=== PATIENT | female | born 1985 | race Caucasian/White ===

== ENCOUNTER 2024-07-06 23:57 | Inpatient (IN) | payer OTHER, SELFPAY ==
--- NOTE | ~2024-07-06 | CT_ITS ---
EXAMINATION: CT ABDOMEN AND PELVIS WITH CONTRAST CLINICAL INFORMATION: Diffuse abdominal pain. Elevated LFTs. COMPARISON: None available. TECHNIQUE: Multidetector volumetric images were obtained from the superior aspect of the liver through the pubic symphysis following administration 85 mL of Omnipaque 350 intravenous contrast. Sagittal and coronal reformatted images were obtained on the technologist's workstation. Oral contrast: No This CT examination was performed using dose optimization techniques as appropriate, variously including the following: *Automated exposure control *Adjustment of mA and/or kV according to patient size (this includes techniques or standardized protocols for targeted exams where dose is matched to indication/reason for exam; i.e. extremities or head) *Use of iterative reconstruction technique DLP: 477 mGy-cm FINDINGS: LUNG BASES: Patchy pulmonary groundglass LIVER, GALLBLADDER, AND BILIARY TREE: Liver measures 30 cm. Diffuse heterogeneous nodular enhanced throughout the liver parenchyma. Main portal vein and hepatic veins and intrahepatic portion of the IVC are patent with No intrahepatic biliary ductal dilatation. Fluid-filled gallbladder with trace of pericholecystic fluid. Common bile duct measures 3 mm. PANCREAS: Peripancreatic edema pattern/trace of fluid, lesser sac or focal pancreatic mass. Homogeneous enhancement of the pancreatic parenchyma. No main pancreatic ductal dilatation. SPLEEN: 14 cm. No focal mass. ADRENAL GLANDS: No nodular lesions. KIDNEYS AND URETERS: No renal mass. No hydronephrosis. Normal enhancement pattern of the renal parenchyma. BLADDER: Fluid-filled. GASTROINTESTINAL TRACT: Collapsed appearance of the large intestine. No intestinal obstruction pattern. Small volume of ascites. No pneumoperitoneum. No pneumatosis intestinalis. There appears to be a blind ended in the tubular structure likely normal appendix. ABDOMINAL WALL: Small fat-containing umbilical hernia with trace of fluid. LYMPH NODES: Prominent nonspecific lymph nodes, mesenteric and retroperitoneal. VASCULAR: I do not see a prominent umbilical vein. No gross splenorenal shunting. No gross varices at the gastroesophageal junction. No aneurysm or dissection, abdominal aorta. PELVIC VISCERA: No gross masses in the adnexa or the uterus. OSSEOUS STRUCTURES: No lytic or blastic lesions. No acute fracture or listhesis in the axial skeleton. CT/CT abdomen pelvis w IV con IMPRESSION: Hepatosplenomegaly suggesting cirrhosis. Superimposed hepatocellular dysfunction/acute hepatitis versus tumor infiltration to the liver cannot be excluded. Small amount of ascites. Questionable acute pancreatitis. No intestinal obstruction pattern. No pneumoperitoneum. Fleischner guidelines were followed. Electronically signed by: Castillo Abraham MD 07/07/2024 10:28 AM [facility]
--- NOTE | ~2024-07-06 | XR_ITS ---
EXAMINATION: XR CHEST 2 VIEW CLINICAL INFORMATION: Elevated WBC, rule out pneumonia COMPARISON: None TECHNIQUE: PA and lateral views of the chest obtained. FINDINGS: The lungs are clear. There are no pleural effusions. The cardiomediastinal silhouette is normal. XR/XR chest 2V IMPRESSION: No acute cardiopulmonary disease. Electronically signed by: Mathieu Paula MD 07/07/2024 02:34 PM EST
--- NOTE | ~2024-07-06 | US_ITS ---
EXAMINATION: US ABDOMEN LIMITED CLINICAL INFORMATION: Ascites. COMPARISON: None available. TECHNIQUE: Four-quadrant examination of the abdomen and pelvis is performed for assessment for ascites. FINDINGS/ US/US abdomen limited IMPRESSION: There is hepatomegaly, with a longitudinal span of 22.4 cm. There is mild free fluid within the left upper quadrant. Electronically signed by: Austin Costa MD 07/11/2024 05:26 PM EST
--- NOTE | ~2024-07-06 | US_ITS ---
EXAMINATION: US ABDOMEN LIMITED CLINICAL INFORMATION: Diffuse abdominal pain, elevated LFTs.. COMPARISON: None available. TECHNIQUE: Real-time imaging of the right upper quadrant abdominal viscera. FINDINGS: PANCREAS: Mildly enlarged, mildly hypoechoic without focal lesion. LIVER: Enlarged, measuring 26.0 cm. Is diffusely echogenic consistent with diffuse fatty infiltration. Mild macro nodularity to the liver contour suggests some degree of cirrhosis. No suspicious focal lesion. There is no intrahepatic or extrahepatic biliary duct dilatation seen. GALLBLADDER: There are no calculi. There is mild diffuse wall thickening with a tiny focus of pericholecystic fluid present. Assessment for sonographic Arriaga sign is limited, as the patient is tender everywhere over the abdomen. Gallbladder wall measures up to 3 mm in thickness. There is mild gallbladder distention. There is no sludge, or mass present. COMMON BILE DUCT: Normal in caliber measuring 2.2 cm in diameter. RIGHT KIDNEY: Normal. No hydronephrosis. No renal calculi or focal parenchymal lesions. The kidney measures 11.7 cm in maximum dimension. FREE FLUID: Aside from trace pericholecystic fluid, no additional abnormal fluid present. US/US abdomen limited IMPRESSION: 1. Diffuse enlargement and fatty infiltration of the liver with possible early cirrhotic changes. No discrete focal lesion. 2. Mild enlargement of the head of the pancreas with mild decrease in attenuation, findings which could represent acute pancreatitis in the appropriate clinical setting. No focal pancreatic abnormality. 3. Mild gallbladder wall thickening with a trace amount of pericholecystic fluid, nonspecific. Limited assessment for sonographic Arriaga's due to diffuse pain. No definite calculi or sludge seen. 4. Consider cross-sectional CT imaging of the abdomen/pelvis to further elucidate findings. Electronically signed by: Garcia Reyna MD 07/07/2024 09:44 AM [facility]
[2024-07-06 23:59] VITALS: BP 133/74; PULSE 113; RESP 18; TEMP 36.6; O2SAT 97; BMI 25.2
[2024-07-07] VITALS (8 sets, daily range): BP systolic 113–132; BP diastolic 67–77; PULSE 102–116; RESP 18–33; TEMP 36.8–37.4; O2SAT 96–99
[2024-07-07 00:41] LABS: Basophils Absolute Auto 0.1 X10*3/uL (0.0-0.2); Basophils Percent Auto 0.6 % (0-2); Eosinophils Absolute Auto 0.3 X10*3/uL (0.0-0.4); Eosinophils Percent Auto 1.4 % (0-4); Hematocrit 29.4 % (37.0-47.0); Hemoglobin 10.2 g/dl (12.0-16.0); Imm Gran Abs Auto 0.46 X10*3/uL (0.00-0.03); Lymphocytes Absolute Auto 2.6 X10*3/uL (1.2-4.9); Lymphocytes Percent Auto 11.2 % (20-40); MANUAL DIFF FLAG SCAN; Mean Corpuscular HGB Conc 34.7 g/dl (31.0-35.0); Mean Corpuscular Hemoglobin 34.6 pg (27.0-33.0); Mean Corpuscular Volume 99.7 fL (80.0-98.0); Mean Platelet Volume 9.4 fL (9.4-12.3); Monocytes Absolute Auto 1.9 X10*3/uL (0.1-1.2); Monocytes Percent Auto 8.4 % (2-11); Neutrophils Absolute Auto 17.5 x10*3/uL (2.0-8.3); Neutrophils Percent Auto 76.4 % (45-73); Platelet Count 251 X10*3/uL (160-400); Red Blood Count 2.95 X10*6/uL (4.20-5.50); Red Cell Distribution Width 15.9 % (11.0-16.0); SCAN SMEAR FLAG 1; White Blood Count 22.9 X10*3/uL (4.8-10.8)
[2024-07-07 00:57] LABS: Alanine Aminotransferase 47 U/L (0-31); Albumin Level 2.8 g/dL (3.5-5.0); Alkaline Phosphatase 637 U/L (39-117); Anion Gap 17 (12-20); Aspartate Amino Transferase 205 U/L (5-31); Bilirubin Direct 7.5 mg/dL (0.0-0.5); Bilirubin Total 9.5 mg/dL (0.0-1.0); Blood Urea Nitrogen 5 mg/dL (9-16); Calcium 8.4 mg/dL (8.4-10.2); Carbon Dioxide 25 mmol/L (22-29); Chloride 101 mmol/L (96-108); Creatinine Clr Calc Pharmacy 124.1; Estimated Glomerular Filt Rate > 60; Glucose Random 114 mg/dL (60-115); Lipase 19 U/L (8-78); Potassium 3.2 mmol/L (3.3-5.1); Sodium 140 mmol/L (135-145); Total Protein 6.5 g/dL (6.5-8.0)
[2024-07-07 01:03] LABS: SLIDE REVIEW VERIFIED
--- NOTE | 2024-07-07 02:42 | PC.NURSE ---
pt a&ox4, respirations even and unlabored. pt noted to be sinus tachy 111-112. pt reports getting lab work from pcp last week and noted abnormal results. pt noted to have jaundice skin and sclera. pt reports n/v/d x2 weeks with abdominal pain. pt noted to have bowel sounds x4 quadrants. abdomen is distended and painful upon palpation. pt reports chronic alcohol use, last drink 1 week ago. pt family member at bedside states pt often 'slips drinks behind his back'. 20g placed in r ac.
--- NOTE | 2024-07-07 04:51 | PC.NURSE ---
provider aware of pt tachycardia, no new orders at this time.
--- NOTE | 2024-07-07 06:23 | ED.GENADULT ---
HPI - General Adult General Chief complaint: Recheck/Abnormal Lab/Rx Stated complaint: abnormal labs Time Seen by Provider: 07/07/24 06:22 Source: patient and RN notes reviewed Mode of arrival: ambulatory Limitations: no limitations History of Present Illness ED Provider: Emily Zimmer PA-C HPI narrative: This is a 39-year-old female, with a history of alcohol use disorder, who presents emergency department with complaints of generalized body aches, abdominal bloating, abdominal pain, diarrhea, nausea and vomiting. Patient reports that she has not been feeling well over the last month or 2, she is very vague with the onset of her symptoms. She states that around April time, she developed abdominal bloating, as well as abdominal discomfort and occasional nausea and vomiting. She went to her primary care physician last week where she had outpatient blood work as well as had an ultrasound performed however has not heard back about the ultrasound or the blood work. She states that her partner had researched her blood work on her patient portal and was concerned due to these abnormal levels. During first encounter, patient reports that she only drinks 1-2 glasses of wine several times a week. However, upon further questioning later on during her ED stay, she does admit that she has been drinking 3 glasses of wine per day. She states that she has had times where she would stopped drinking however admits that this has been occurring for the last 8-10 years. Denies history of alcohol withdrawal seizures or alcohol withdrawal. She reports significant family past medical history of alcohol use disorder, reporting that multiple members of her family have from alcohol use disorder. She also reports that last year she had been admitted to a hospital in [place] due to lower extremity weakness, and was told that this was attributed to on electrolyte/vitamin deficiency. She states that she still has peripheral neuropathy however this has significantly improved since her previous hospital stay last year. She denies any recent travel, surgery, or hospitalizations. She is extremely anxious, tearful. MD complaint: Abdominal distention, pain, nausea, vomiting Onset (ago): week(s) Radiation: non-radiation Quality: aching Pain Consistency: constant Relieving factors: none Exacerbating factors: none Associated symptoms: loss of appetite, malaise and nausea/vomiting Treatments prior to arrival: none Related Data Home Medications ?Medication ?Instructions ?Recorded ?Confirmed folic acid 1 mg tablet 1 mg PO DAILY 07/07/24 07/07/24 hydroxyzine HCl 25 mg tablet 25 mg PO QID PRN itch 07/07/24 07/07/24 levothyroxine 25 mcg tablet 25 mcg PO DAILY@0630 07/07/24 07/07/24 magnesium oxide 400 mg PO DAILY 07/07/24 07/07/24 norgestimate 0.18 mg/0.215 mg/0.25 1 tab PO DAILY 07/07/24 07/07/24 mg-ethinyl estradiol 25 mcg tablet ([id number]) sertraline 50 mg tablet 150 mg PO DAILY 07/07/24 07/07/24 Allergies Allergy/AdvReac Type Severity Reaction Status Date / Time No Known Allergies Allergy Verified 07/07/24 00:04 Review of Systems Review of Systems: Yes all other systems are reviewed and are negative Constitutional: Constitutional: Reports as per [facility] Past Medical History Attestation statement: The following information was validated with the patient. Medical History Anxiety disorder Hypothyroidism Alcohol use disorder Social History Social History Alcohol intake: current Alcohol intake frequency: a few times a week Patient Tobacco Use Status: Never used Tobacco Smoked in Last 30 Days: No Use of substances other than those prescribed or required for medical reasons: No Advance Directives: Yes Advance Directives Information Provided: Yes Advance Directives on File: No Do you have a plan to hurt others: No Plan Nutrition Risks: No Nutritional Risk Patient : No Physical Exam ED Vital Signs: Vital Signs - 24 hr 07/06/24 23:59 07/07/24 01:49 07/07/24 04:34 Temperature 97.8 F 99.4 F 98.6 F Pulse Rate 113 H 107 H 105 H Respiratory Rate 18 18 20 Blood Pressure 133/74 115/67 113/67 Pulse Oximetry 97 97 96 Oxygen Delivery Method Room Air Room Air Room Air 07/07/24 07:15 07/07/24 10:00 Temperature 98.2 F 98.5 F Pulse Rate 107 H 105 H Respiratory Rate 23 H 33 H Blood Pressure 120/72 116/69 Pulse Oximetry 98 96 Oxygen Delivery Method Room Air Room Air BMI result Body Mass Index 25.2 Const General: cooperative, comfortable and no acute distress Orientation/consciousness: patient oriented x3 Limitations: no limitations [facility] Head: Yes normal to inspection, Yes normocephalic and Yes atraumatic Ears: hearing grossly normal bilaterally General nose exam: Normal external nose present Face and sinus: Yes normal facial exam Mouth: Normal oral and palatal mucosa present, oropharynx normal and moist mucous membranes Throat: Yes posterior oropharynx normal Eyes Other: Scleral icterus noted. General: appearance normal, both eyes and all related structures Eyelids: Yes eyelids normal Pupils: Equal, round and reactive pupils present EOM: EOMs intact bilaterally Neck Neck: Yes normal visual inspection, Yes full ROM and Yes no lymphadenopathy Lymphatic: no lymphadenopathy noted Chest Chest palpation & inspection: normal inspection of the chest Resp Effort & Inspection: normal respiratory effort and able to speak in complete sentences Auscultation: clear to auscultation bilaterally, no crackles, no rales, no rhonchi and no wheezes Cardio Rate: regular rate Rhythm: regular rhythm Heart sounds: S1 normal heart sound present and S2 normal heart sound present GI Other: Abdomen is firm and diffusely tender, no rebound. Distended. No specific point tenderness.no rebound or guarding. Positive bowel sounds. Inspection: Yes normal to inspection, Yes Abdominal wall edema and Yes distended Auscultation: normal bowel sounds Skin Other: Jaundiced General skin exam: no rashes or lesions noted and jaundice Neuro General: patient oriented x3 and moves all extremities Cranial nerves: Yes Equal, round and reactive pupils present Extrem General: Yes normal to inspection Right upper extremity: normal to inspection Left upper extremity: normal to inspection Right lower extremity: normal to inspection Left lower extremity: normal to inspection Course Reevaluation(s) Reevaluation #1: Ultrasound was performed at bedside, awaiting official radiology report. CT scan has not been performed yet. Patient remained stable and comfortable. Will continue to closely monitor. Time: 08:59 Reevaluation #2: Patient went to CT scan, very anxious appearing, upon more questioning, patient does admit that she does drink 3 glasses of wine per day. She states that she has periods of sobriety. However states that she has been drinking like this for several months. She is very anxious, CIWA scale was performed, is elevated, will medicate with phenobarb protocol. Awaiting CT scan results. Time: 09:47 Reevaluation #3: Received call from [facility], abnormal abdomen and pelvis revealing question of acute hepatitis versus tumor versus cirrhosis. There is also a question of acute pancreatitis however patient's lipase is within normal limits, therefore this is less likely. Will await official report Time: 10:16 Additional Reevaluation(s): CT scan returns, revealing hepatosplenomegaly suggesting cirrhosis, there was some superimposed hepatocellular dysfunction/acute hepatitis versus tumor infiltration to the liver which can not be excluded. There is a small amount of ascites. There is questionable acute pancreatitis. Given patient's lipase is within normal limits, this is unlikely. Due to question of tumor infiltration, this may be the source of the leukocytosis. Patient remains to be extremely anxious, tachycardic. At this time there is no known source of infection. We are awaiting on a urine sample. I reached out to Dr. Kennedy regarding CT scan and blood work. She will follow-up with patient this afternoon. 07/07/1311 - at this time, infection is not suspected, tachycardia attributed to anxiety, as well as alcohol use disorder, however she has received her phenobarbital. however she remains tachycardic. She is afebrile. Leukocytosis noted at 22.9, thought to be reactive, and may be attributed to possible liver disease. Chest x-ray was ordered, urine is still pending. Will administer 1 g of ceftriaxone, however there was still no source of infection at this time. Transfer of care initiated to the hospitalist. Medications Administered Generic Name Dose Route Start Last Admin Trade Name Freq PRN Reason Stop Dose Admin Enoxaparin Sodium 40 mg 07/07/24 13:30 07/07/24 14:53 Enoxaparin Sodium 40 Mg/0.4 Ml Syringe SUBCUT 40 mg Q24H BRANDI Administration Multivitamins/Vitamin C 1 tab 07/07/24 14:50 07/07/24 16:49 Multivitamin Tablet PO 07/10/24 14:49 Not Given DAILY BRANDI Sertraline HCl 150 mg 07/07/24 14:55 07/07/24 16:48 Sertraline Hcl 50 Mg Tablet PO 150 mg DAILY BRANDI Administration Thiamine HCl 100 mg 07/07/24 14:50 07/07/24 16:48 Thiamine Hcl 100 Mg Tablet PO 07/10/24 14:49 100 mg DAILY BRANDI Administration Discontinued Medications Generic Name Dose Route Start Last Admin Trade Name Freq PRN Reason Stop Dose Admin Ceftriaxone Sodium 1 gm 07/07/24 13:13 07/07/24 14:55 Ceftriaxone Sodium 1 Gm Vial IVPUSH 07/07/24 13:14 1 gm ONCE ONE Administration Sodium Chloride 1,000 mls @ 999 mls/hr 07/07/24 11:30 07/07/24 15:07 Ns IV 07/07/24 12:30 Infused .Q1H1M ONE Infusion Iohexol 100 ml 07/07/24 09:20 07/07/24 09:20 Iohexol 350 Mg/Ml 100 Ml Infus..Btl IV 07/07/24 09:21 85 ml ONCE ONE Administration Phenobarbital Sodium 219 mg 07/07/24 10:15 07/07/24 10:42 Phenobarbital Sodium 130 Mg/Ml Im Once IM 07/07/24 10:16 219 mg ONCE ONE Administration Protocol Phenobarbital Sodium 164 mg 07/07/24 13:00 07/07/24 14:54 Phenobarbital Sodium 130 Mg/Ml Vial Im Q3hx2 IM 07/07/24 16:01 164 mg Q3H BRANDI Administration Protocol Potassium Chloride 20 meq 07/07/24 14:21 07/07/24 14:52 Potassium Chloride Er 20 Meq Tab.Er.Prt PO 07/07/24 14:22 20 meq ONCE ONE Administration Medical Decision Making Medical Decision Making [facility] Narrative: This is a 39-year-old female who presents emergency department with complaints of generalized body aches, diffuse abdominal pain since April, diarrhea which started today. She was seen at an outpatient facility where she had outpatient labs drawn however has not heard back in regards to these results. She states that the bloating has increased over the last 2 weeks. On arrival, patient tachycardic at 111 all other vital signs within normal limits. During my assessment at approximately 7:15 a.m, blood pressure within normal limits, she is slightly tachycardic at 107, respirations 23. Patient is tearful, very anxious, shaking throughout my entire assessment. She states that she has a very anxious person and the thought of her being here is very difficult for her. She states that she is very ashamed of her alcohol use. Labs were performed prior to my assessment, she does have leukocytosis at 22.9 with a left shift. Abdomen is distended, she does have an elevated total bilirubin at 9.5, direct bili at 7.5, AST 205, ALT 47, and elevated alk phos at 637. Differential diagnoses include alcohol-induced hepatitis, cholescysititis - less likely, cholangitis - less likely, cirrhosis. At this time, I do not suspect infection as there is no source of infection and I believe that this is likely reactive secondary to alcohol abuse. Plan: Labs, abdomen US, CT abd/pelvis Differential Diagnosis Differential Diagnoses: The differential diagnosis associated with the presentation includes See above Lab Data MDM Lab Attestation statement: I reviewed the patient's lab results. Leukocytosis noted at 22.9 K, with left shift, chemistry revealing hypokalemia at 3.2, total bili elevated at 9.5, direct bili 7.5, AST and ALT 205 and 47. Alk phos elevated at 637. Suspecting this is alcoholic hepatitis. 07/07/24 00:33 07/07/24 00:33 Labs: Lab Results 07/07/24 07/07/24 07/07/24 Range/Units 00:33 07:12 12:17 WBC 22.9 H (4.8-10.8) X10*3/uL RBC 2.95 L (4.20-5.50) X10*6/uL Hgb 10.2 L (12.0-16.0) g/dl Hct 29.4 L (37.0-47.0) % MCV 99.7 H (80.0-98.0) fL MCH 34.6 H (27.0-33.0) pg MCHC 34.7 (31.0-35.0) g/dl RDW 15.9 (11.0-16.0) % Plt Count 251 (160-400) X10*3/uL MPV 9.4 (9.4-12.3) fL Immature Gran % (Auto) 2.0 H (0.0-0.4) % Neut % (Auto) 76.4 H (45-73) % Lymph % (Auto) 11.2 L (20-40) % [place] % (Auto) 8.4 (2-11) % Eos % (Auto) 1.4 (0-4) % Baso % (Auto) 0.6 (0-2) % Lymph # (Auto) 2.6 (1.2-4.9) X10*3/uL [place] # (Auto) 1.9 H (0.1-1.2) X10*3/uL Eos # (Auto) 0.3 (0.0-0.4) X10*3/uL Baso # (Auto) 0.1 (0.0-0.2) X10*3/uL Abs Immat Gran (auto) 0.46 H (0.00-0.03) X10*3/uL Absolute Neuts (auto) 17.5 H (2.0-8.3) x10*3/uL Absolute Nucleated RBC 0.000 (0.0-0.012) X10*3/uL Nucleated RBC % (auto) 0.0 (0.0-0.2) /100WBC Smear Tech's Comments VERIFIED Sodium 140 (135-145) mmol/L Potassium 3.2 L (3.3-5.1) mmol/L Chloride 101 (96-108) mmol/L Carbon Dioxide 25 (22-29) mmol/L Anion Gap 17 (12-20) BUN 5 L (9-16) mg/dL Creatinine 0.56 (0.5-1.4) mg/dL Estim Creat Clear Calc 124.1 Estimated GFR > 60 Random Glucose 114 (60-115) mg/dL Lactic Acid 1.2 (0.5-2.0) mmol/L Calcium 8.4 (8.4-10.2) mg/dL Magnesium 1.8 (1.6-2.6) mg/dL Total Bilirubin 9.5 H (0.0-1.0) mg/dL Direct Bilirubin 7.5 H (0.0-0.5) mg/dL AST 205 H (5-31) U/L ALT 47 H (0-31) U/L Alkaline Phosphatase 637 H (39-117) U/L Ammonia 57 H (13-55) umol/L Total Protein 6.5 (6.5-8.0) g/dL Albumin 2.8 L (3.5-5.0) g/dL Lipase 19 (8-78) U/L TSH 10.01 H (0.32-4.0) uIU/mL Beta HCG, Quant < 2 mIU/mL Hepatitis A IgM Ab Nonreactive (Nonreactive) Hep Bs Antigen Negative (Negative) Hep Bs Antibody NONREACTIVE (Nonreactive) Hep B Core Total Ab Nonreactive (Nonreactive) Hepatitis C Ab (EIA) Nonreactive (Nonreactive) Radiology Impression Discussion of test interpretation with radiology: I have reviewed the radiologist's reading. Radiologist Impression: XR/XR chest 2V IMPRESSION: No acute cardiopulmonary disease. Electronically signed by: Mathieu Paula MD 07/07/2024 02:34 PM EST RP Dictated By: Mathieu Paula MD US/US abdomen limited IMPRESSION: 1. Diffuse enlargement and fatty infiltration of the liver with possible early cirrhotic changes. No discrete focal lesion. 2. Mild enlargement of the head of the pancreas with mild decrease in attenuation, findings which could represent acute pancreatitis in the appropriate clinical setting. No focal pancreatic abnormality. 3. Mild gallbladder wall thickening with a trace amount of pericholecystic fluid, nonspecific. Limited assessment for sonographic Arriaga's due to diffuse pain. No definite calculi or sludge seen. 4. Consider cross-sectional CT imaging of the abdomen/pelvis to further elucidate findings. Electronically signed by: Garcia Reyna MD 07/07/2024 09:44 AM [facility] RP Dictated By: Garcia Reyna MD CT/CT abdomen pelvis w IV con IMPRESSION: Hepatosplenomegaly suggesting cirrhosis. Superimposed hepatocellular dysfunction/acute hepatitis versus tumor infiltration to the liver cannot be excluded. Small amount of ascites. Questionable acute pancreatitis. No intestinal obstruction pattern. No pneumoperitoneum. Fleischner guidelines were followed. Electronically signed by: Castillo Abraham MD 07/07/2024 10:28 AM [facility] Dictated By: Castillo Orozco MD External Record Review External record reviewed: Inpatient record, Office record, Outpatient record, Prior outpatient labs, Prior outpatient radiology, Primary care record and Outside ED record Critical Care Time Critical Care Time Critical Care Time: Yes Total Critical Care Time: 60 Attestation: I have personally provided critical care time exclusive of time spent on separately billable procedures. Time includes review of lab data, radiology results, discussion with consultants, and monitoring for potential decompensation. Intervention performed as documented. Discharge Plan Discharge Clinical Impression: Acute alcoholic hepatitis Patient Disposition: Admitted As Inpatient
[2024-07-07 07:30] LABS: Lactic Acid 1.2 mmol/L (0.5-2.0)
[2024-07-07] MEDS: iohexoL 350 MG/ML 100 ML INFUS..BTL IV (09:20)
[2024-07-07 09:56] LABS: HCG Quantitative < 2 mIU/mL
[2024-07-07] MEDS: PHENobarbitaL sodium 130 MG/ML IM ONCE 219 MG IM (10:42)
[2024-07-07] MEDS: 0.9 % Sodium Chloride 1,000 ML 999 ML IV (12:12)
[2024-07-07 12:37] LABS: Ammonia 57 umol/L (13-55)
--- NOTE | 2024-07-07 12:38 | PHA.MEDREC ---
Addendum entered by Gwyn Brandt [facility] 07/07/24 12:44: MED REC CHECKED BY [facility] Original Note: Pharmacy Consult ? Medication Reconciliation Pharmacy has completed the medication reconciliation. Spoke to patent to confirm med list. Patient had a list of medications on her phone. Patent states she is on Levothyroxine 50 mcg , however claim has her filling 25mg. left what claim states.
[2024-07-07 13:06] LABS: HBc Num1 0.25 S/CO (0.00-0.79); HBsAGNum1 0.32 S/CO (0.00-0.99); Hepatitis A Antibody IgM 0.14 Index (0-0.79); Hepatitis B Core Antibody Nonreactive (Nonreactive); Hepatitis B Surface Antigen Negative (Negative); ~HepC Num1 0.11 S/CO (0.00-0.79); ~Hepatitis A Antibody IgM Nonreactive (Nonreactive); ~Hepatitis B Surface Antibody NONREACTIVE (Nonreactive); ~Hepatitis C Antibody Nonreactive (Nonreactive)
--- NOTE | 2024-07-07 13:37 | PM.IMHP ---
History of Present Illness Date of Service: 07/07/24 Attending physician on admission: Titus Hays Chief Complaint: Abdnormal labs, abd distension Pt is a 39-year-old female with a PMH significant for alcohol use disorder, hypothyroidism, and anxiety?who presents to the ED due to abnormal outpatient labs. Pt reports has been feeling unwell for the past 2 months. Began noticing abdominal distension in April and since then has had bloating, generalized abdominal discomfort, and occasional N/V. Dolores has gained 20lbs during this time. Presented to her PCP last week who ordered an abd ultrasound performed at [facility] in [place], [place] and bloodwork. State she never heard back about results. However, her partner noticed labs looked abnormal so called the PCP office and was told she should present to the ED for further evaluation. Pt reports has been drinking 3 glasses of white wine daily x9-10 years. Has significant family history of paternal AUD, saying her father, grandfather, and an aunt from alcoholism . Denies hx of withdrawal. No auditory or visual hallucinations. No headache. Denies fever, chills. No cough. Denies shortness or breath or difficulty breathing. No chest pain/pressure, palpitations. Denies polyuria or dysuria. Denies significant diarrhea. In the ED pt was afebrile but tachycardic up to 113 and tachypneic up to 33. Labs were significant for leukocytosis of 22.9, macrocytic anemia 10.2/29.4 with MCV 99.7, potassium 3.2, bilirubin 9.5, AST 205, ALT 47, alk-phos 637, ammonia 57, and albumin 2.8. Hepatitis panel negative. CT?of abdomen and pelvis showed hepatosplenomegaly suggesting cirrhosis, though superimposed hepatocellular dysfunction/acute hepatitis versus tumor infiltration to the liver can not be excluded. Also found small amount of ascites, and question of acute pancreatitis. Abdominal ultrasound found diffuse enlargement and fatty infiltration of liver possible early cirrhotic changes but no discrete focal lesion. Also found mild enlargement of head of pancreas with mild decrease in attenuation, question of acute pancreatitis. Pt was treated with IVF and started on phenobarb protocol. Pt will be admitted to the hospital for treatment further evaluation of abdominal distention and elevated LFTs concerning for acute alcoholic hepatitis. Review of Systems Review of Systems: Negative except for that which is stated in the HPI Yes all other systems are reviewed and are negative [facility] Medical History Anxiety disorder Hypothyroidism Alcohol use disorder Social History Alcohol intake: current Alcohol intake frequency: a few times a week Smoked in Last 30 Days: No Use of substances other than those prescribed or required for medical reasons: No Advance Directives: Yes Advance Directives Information Provided: Yes Advance Directives on File: No Do you have a plan to hurt others: No Plan Patient : No Meds Allergies Allergy/AdvReac Type Severity Reaction Status Date / Time No Known Allergies Allergy Verified 07/07/24 00:04 Active Medications: Current Medications Pharmacy Consult (Consult Rx Etoh Phenob Im/Po) 1 each MISCELLANE ONCE PRN; Protocol PRN Reason: Consult order Phenobarbital (Phenobarbital 15 Mg Tablet) 45 mg PO BID BRANDI; Protocol Stop: 07/09/24 09:01 Phenobarbital (Phenobarbital 15 Mg Tablet) 15 mg PO BID BRANDI; Protocol Stop: 07/11/24 09:01 Phenobarbital (Phenobarbital 15 Mg Tablet) 15 mg PO DAILY BRANDI; Protocol Stop: 07/13/24 09:01 Phenobarbital Sodium (Phenobarbital Sodium 130 Mg/Ml Vial Im Q3hx2) 164 mg IM Q3H BRANDI; Protocol Stop: 07/07/24 16:01 Home Medications ?Medication ?Instructions ?Recorded ?Confirmed ?Last Taken ?Type folic acid 1 mg tablet 1 mg PO DAILY 07/07/24 07/07/24 Unknown History hydroxyzine HCl 25 mg tablet 25 mg PO QID PRN itch 07/07/24 07/07/24 Unknown History levothyroxine 25 mcg tablet 25 mcg PO DAILY@0630 07/07/24 07/07/24 Unknown History magnesium oxide 400 mg PO DAILY 07/07/24 07/07/24 Unknown History norgestimate 0.18 mg/0.215 mg/0.25 1 tab PO DAILY 07/07/24 07/07/24 Unknown History mg-ethinyl estradiol 25 mcg tablet ([id number]) sertraline 50 mg tablet 150 mg PO DAILY 07/07/24 07/07/24 Unknown History Physical Exam Vital Signs and Narrative: Vital Signs: Last Vital Signs Temp 98.5 F 07/07/24 10:00 Pulse 105 H 07/07/24 10:00 Resp 33 H 07/07/24 10:00 BP 116/69 07/07/24 10:00 Pulse Ox 96 07/07/24 10:00 O2 Del Method Room Air 07/07/24 10:00 BMI result Body Mass Index 25.2 Constitutional: Alert, tearful, in no acute distress. Jaundiced. Mental Status: Oriented to person, place and time. Eyes: Pupils are equal, round, and reactive to light. Sclera icteric Ear, Nose, and Throat: Oropharynx clear, mucous membranes moist. Ears and nose without deformities. Trachea midline. Respiratory: Clear to auscultation bilaterally. No wheezing, rales, or rhonchi. Cardiovascular: S1, S2 regular rhythm, tachycardic. No murmurs, rubs, or gallops. Gastrointestinal: Abdomen soft, firm and mildly distended, diffusely tender. Normal bowel sounds. Neurologic: Cranial nerves II-XII are grossly intact bilaterally. No focal neurological deficits. Moves all extremities spontaneously. Mild upper extremity tremors noted. Skin: Warm, dry, jaundiced. Extremities: No edema. Psychiatric: Anxious and tearful. Results Labs 07/07/24 00:33 07/07/24 00:33 Labs: Laboratory Results - last 24 hr 07/07/24 07/07/24 07/07/24 00:33 07:12 12:17 MCV 99.7 H MCH 34.6 H MCHC 34.7 RDW 15.9 Plt Count 251 MPV 9.4 Immature Gran % (Auto) 2.0 H Neut % (Auto) 76.4 H Lymph % (Auto) 11.2 L [place] % (Auto) 8.4 Eos % (Auto) 1.4 Baso % (Auto) 0.6 Lymph # (Auto) 2.6 [place] # (Auto) 1.9 H Eos # (Auto) 0.3 Baso # (Auto) 0.1 Abs Immat Gran (auto) 0.46 H Absolute Neuts (auto) 17.5 H Absolute Nucleated RBC 0.000 Nucleated RBC % (auto) 0.0 Smear Tech's Comments VERIFIED Anion Gap 17 Estim Creat Clear Calc 124.1 Estimated GFR > 60 Random Glucose 114 Lactic Acid 1.2 Calcium 8.4 Total Bilirubin 9.5 H Direct Bilirubin 7.5 H AST 205 H ALT 47 H Alkaline Phosphatase 637 H Ammonia 57 H Total Protein 6.5 Albumin 2.8 L Lipase 19 Beta HCG, Quant < 2 Imaging Radiologist's Impressions: Impressions Abdomen/Pelvis CT 07/07/24 06:39 IMPRESSION: Hepatosplenomegaly suggesting cirrhosis. Superimposed hepatocellular dysfunction/acute hepatitis versus tumor infiltration to the liver cannot be excluded. Small amount of ascites. Questionable acute pancreatitis. No intestinal obstruction pattern. No pneumoperitoneum. Fleischner guidelines were followed. Electronically signed by: Castillo Abraham MD 07/07/2024 10:28 AM [facility] RP Abdomen Ultrasound 07/07/24 08:15 IMPRESSION: 1. Diffuse enlargement and fatty infiltration of the liver with possible early cirrhotic changes. No discrete focal lesion. 2. Mild enlargement of the head of the pancreas with mild decrease in attenuation, findings which could represent acute pancreatitis in the appropriate clinical setting. No focal pancreatic abnormality. 3. Mild gallbladder wall thickening with a trace amount of pericholecystic fluid, nonspecific. Limited assessment for sonographic Arriaga's due to diffuse pain. No definite calculi or sludge seen. 4. Consider cross-sectional CT imaging of the abdomen/pelvis to further elucidate findings. Electronically signed by: Garcia Reyna MD 07/07/2024 09:44 AM [facility] RP Assessment and Plan (1) Elevated LFTs: Status: Acute (2) Abdominal swelling: Status: Acute Plan Pt is a 39-year-old female with a PMH significant for alcohol use disorder, hypothyroidism, and anxiety?who presents to the ED due to abnormal outpatient labs. Pt reports has been feeling unwell for the past 2 months. Pt will be admitted to the hospital for treatment further evaluation of abdominal distention and elevated LFTs concerning for acute alcoholic hepatitis. Elevated LFTs Total bilirubin 9.5, AST, ALT 47, alk-phos 6.37 Pt with abd distention and tenderness, intermittent N/V, jaundice x2 months Imaging showing likely cirrhosis with superimposed possible acute alcoholic hepatitis vs tumor infiltration Trace amount of ascites in pelvis, not enough for even a diagnostic tap according to IR GI consult Will hold on steroids for now pending GI input Trend LFTs Leukocytosis WBCs 22.9 Likely reactionary No sepsis, no clear source of infection Tachycardia and tachypnea secondary to anxiety Patient given IV antibiotics in the ED, will hold off on additional ABX for now Check UA, CXR Only trace ascites, not enough for diagnostic tap Follow CBC Alcohol use disorder Reports drinks 3 galsses of wine daily Denies hx of alcohol withdrawal Increased anxiety, N/V, mild tremors; no auditory or visual hallucinations Placed on phenobarb protocol, will continue Thiamine, folic acid, multivitamin, famotidine Addiction medicine consult CIWA Monitor on telemetry Anxiety Continue sertraline Hydroxyzine p.r.n. Hypothyroidism Continue levothyroxine Check TSH Full Code Attending:? DVT Prophylaxis: Lovenox Pt will require a hospitalization of at least two nights for treatment of?elevated LFTs concerning for acute alcoholic hepatitis. Patient will require close monitoring of labs and specialist consultation with GI for additional workup/treatment. Quality Stroke Does the patient have a stroke diagnosis?: No VTE Prior VTE?: No VTE Risk Level:: Medical - moderate - high VTE Device Contraindication: Treatment Not Indicated VTE Drug Contraindication: N/A - Med Ordered
--- NOTE | 2024-07-07 14:11 | PM.EVENT ---
Event Note Date of Service: 07/07/24 Event Note: Order for paracentesis reviewed. CT performed today reviewed. There is a very small amount of free fluid in the pelvis that is not accessible for diagnostic sampling. Devon SANTOYO Interventional Radiology Time Spent With Patient Time: Total time managing care of this patient today ____ minutes.
--- NOTE | 2024-07-07 14:12 | PM.GICN ---
History of Present Illness Data of Consult Service Date: 07/07/24 Requesting physician: Tony Garcia Primary Care Provider: Karina Chapman MD HPI Reason for consult: elevated LFTs 39-year-old female with a PMH significant for alcohol use disorder, hypothyroidism, and anxiety?who presents to the ED due to abnormal outpatient labs. Pt reports she has been feeling unwell since early April when she noted abdominal distension. Since then she has noted bloating, generalized abdominal discomfort, pressure and cramping with occasional N/V, lack of appetite and wt gain of 20lbs during this time. She noted that her eyes have been yellow since the past 2 days. Pt was seen by her PCP last week who ordered labs and an abd ultrasound performed at [facility] in [place], [place]. Pt stated she never heard back about results. However, her partner noticed labs looked abnormal so called the PCP office and was told she should present to the ED for further evaluation. Pt denies fever, chills, sweating, heartburn, dysphagia, diarrhea, constipation, hematochezia or melena. Pt reports has been drinking 3 glasses of white wine daily x 9-10 years. Pt denies smoking or Marijuana use. Pt reports she was diagnosed with hypothyroidism in February, and became very sick and was bedridden due to electrolyte/vitamin deficiency thyroid neuropathy (hospitalized in [place]) Pt works as a public safety telecommunicator at a [employer], lives with her boyfriend has no children Family history is significant for paternal AUD, saying her father, grandfather, and an aunt from alcoholism . Dad of complications from diabetes mellitus and alcohol abuse. Patient denies known family history of colon polyps or GI malignancy Denies hx of withdrawal. No auditory or visual hallucinations. In the ED pt was afebrile but tachycardic up to 113 and tachypneic up to 33. Labs showed leukocytosis of 22.9, macrocytic anemia 10.2/29.4 with MCV 99.7, potassium 3.2, bilirubin 9.5, AST 205, ALT 47, alk-phos 637, ammonia 57, and albumin 2.8. Hepatitis panel negative. Pt was treated with IVF and started on phenobarb protocol. She was admitted to [facility] for treatment further evaluation of abdominal distention and elevated LFTs concerning for acute alcoholic hepatitis. 07/07/[address] SCAN SHOWED: Hepatosplenomegaly suggesting cirrhosis. Superimposed hepatocellular dysfunction/acute hepatitis versus tumor infiltration to the liver cannot be excluded. Small amount of ascites. Questionable acute pancreatitis. No intestinal obstruction pattern. No pneumoperitoneum. Review of Systems Review of Systems: Negative except for that which is stated in the HPI Yes all other systems are reviewed and are negative [facility] Past Medical History Medical History Anxiety disorder Hypothyroidism Alcohol use disorder Social History Social History Alcohol intake: current Alcohol intake frequency: a few times a week Patient Tobacco Use Status: Never used Tobacco Smoked in Last 30 Days: No Use of substances other than those prescribed or required for medical reasons: No Advance Directives: Yes Advance Directives Information Provided: Yes Advance Directives on File: No Do you have a plan to hurt others: No Plan Nutrition Risks: No Nutritional Risk Patient : No Meds Allergies Allergy/AdvReac Type Severity Reaction Status Date / Time No Known Allergies Allergy Verified 07/07/24 00:04 Active Medications: Current Medications Acetaminophen (Acetaminophen 325 Mg Tablet) 650 mg PO Q6H PRN PRN Reason: Pain, Mild (Pain Scale 1-3), fever or headache Benzonatate (Benzonatate 100 Mg Capsule) 100 mg PO TID PRN PRN Reason: Cough Calcium Carbonate (Calcium Carbonate 750 Mg Tab.Chew) 750 mg PO Q4H PRN PRN Reason: Heartburn Enoxaparin Sodium (Enoxaparin Sodium 40 Mg/0.4 Ml Syringe) 40 mg SUBCUT Q24H BRANDI Magnesium Hydroxide (Milk Of Magnesia 30 Ml Oral.Susp) 30 ml PO DAILY PRN PRN Reason: Constipation Pharmacy Consult (Consult Rx Etoh Phenob Im/Po) 1 each MISCELLANE ONCE PRN; Protocol PRN Reason: Consult order Phenobarbital (Phenobarbital 15 Mg Tablet) 45 mg PO BID BRANDI; Protocol Stop: 07/09/24 09:01 Phenobarbital (Phenobarbital 15 Mg Tablet) 15 mg PO BID BRANDI; Protocol Stop: 07/11/24 09:01 Phenobarbital (Phenobarbital 15 Mg Tablet) 15 mg PO DAILY BRANDI; Protocol Stop: 07/13/24 09:01 Phenobarbital Sodium (Phenobarbital Sodium 130 Mg/Ml Vial Im Q3hx2) 164 mg IM Q3H BRANDI; Protocol Stop: 07/07/24 16:01 Sodium Chloride (0.9 % Sodium Chloride Flush 3 Ml Syringe) 3 ml IVFLUSH QSHIFT BRANDI Home Medications ?Medication ?Instructions ?Recorded ?Confirmed ?Last Taken ?Type folic acid 1 mg tablet 1 mg PO DAILY 07/07/24 07/07/24 Unknown History hydroxyzine HCl 25 mg tablet 25 mg PO QID PRN itch 07/07/24 07/07/24 Unknown History levothyroxine 25 mcg tablet 25 mcg PO DAILY@0630 07/07/24 07/07/24 Unknown History magnesium oxide 400 mg PO DAILY 07/07/24 07/07/24 Unknown History norgestimate 0.18 mg/0.215 mg/0.25 1 tab PO DAILY 07/07/24 07/07/24 Unknown History mg-ethinyl estradiol 25 mcg tablet ([id number]) sertraline 50 mg tablet 150 mg PO DAILY 07/07/24 07/07/24 Unknown History Physical Exam Vital Signs: Vital Signs: Last Vital Signs Temp 98.5 F 07/07/24 10:00 Pulse 105 H 07/07/24 10:00 Resp 33 H 07/07/24 10:00 BP 116/69 07/07/24 10:00 Pulse Ox 96 07/07/24 10:00 O2 Del Method Room Air 07/07/24 10:00 BMI result Body Mass Index 25.2 Const: General: no acute distress, ill appearing and other (tearful) Nutritional Appearance: average body habitus Orientation/consciousness: patient oriented x3 HEENT: Head: Yes normal to inspection Ears: hearing grossly normal bilaterally Mouth: Normal oral and palatal mucosa present Eyes: Sclerae: scleral abnormal (jaundice) Pupils: Equal, round and reactive pupils present Neck: Neck: Yes normal visual inspection Chest: Chest palpation & inspection: normal inspection of the chest Resp: Effort & Inspection: normal respiratory effort Auscultation: clear to auscultation bilaterally Cardio: Palpation: normal PMI Rate: regular rate Rhythm: regular rhythm Heart sounds: S1 normal heart sound present, S2 normal heart sound present and no murmurs GI: Inspection: Yes distended Palpation (GI): Soft to palpation, nontender and Hepatomegaly present (Liver palpable 10-12 cms below the RCM) Auscultation: normal bowel sounds Rectal Exam - Female: deferred Skin: General skin exam: no rashes or lesions noted Neuro: General: patient oriented x3, gait normal and moves all extremities Cranial nerves: Yes Equal, round and reactive pupils present Psych: Appearance: grossly normal Mental Status: mental status grossly normal Affect: Anxious affect present Results Labs 07/07/24 00:33 07/07/24 00:33 Labs: Short CBC 07/07/24 Range/Units 00:33 WBC 22.9 H (4.8-10.8) X10*3/uL Hgb 10.2 L (12.0-16.0) g/dl Hct 29.4 L (37.0-47.0) % Plt Count 251 (160-400) X10*3/uL BMP 07/07/24 00:33 Sodium 140 Potassium 3.2 L Chloride 101 Carbon Dioxide 25 BUN 5 L Creatinine 0.56 Calcium 8.4 Liver Function 07/07/24 Range/Units 00:33 Total Bilirubin 9.5 H (0.0-1.0) mg/dL Direct Bilirubin 7.5 H (0.0-0.5) mg/dL AST 205 H (5-31) U/L ALT 47 H (0-31) U/L Alkaline Phosphatase 637 H (39-117) U/L Albumin 2.8 L (3.5-5.0) g/dL Assessment and Plan (1) Acute alcoholic hepatitis: Status: Acute (2) Elevated LFTs: Status: Acute Plan 39-year-old female with a PMH significant for alcohol use disorder, hypothyroidism, and anxiety?admitted to [facility] with acute alcoholic hepatitis and possible pancreatitis Labs showed leukocytosis of 22.9, macrocytic anemia 10.2/29.4 with MCV 99.7, potassium 3.2, bilirubin 9.5, AST 205, ALT 47, alk-phos 637, ammonia 57, and albumin 2.8. Hepatitis A, B and C serologies were negative. Pt was treated with IVF and started on phenobarb protocol. She was admitted to [facility] for treatment further evaluation of abdominal distention and elevated LFTs concerning for acute alcoholic hepatitis. Maddrey score is 41 RECOMMENDATIONS: 1. Continue CIWA protocol and monitor for withdrawl 2. Continue Thiamine, folic acid. 3. Start Prednisone 40 mg daily for alcoholic hepatitis and monitor LFTs daily 4. Iron studies, Vitamin B12 levels - added to am labs. 5. Referral for ETOH rehab.. Procedures Date of Service Date of Service: 07/07/24
[2024-07-07 14:49] LABS: Magnesium 1.8 mg/dL (1.6-2.6)
[2024-07-07 14:52] LABS: INTERNATIONAL NORM RATIO 1.6 (0.9-1.1); Prothrombin Time 18.9 SEC (10.9-12.4)
[2024-07-07] MEDS: Potassium Chloride ER 20 MEQ TAB.ER.PRT PO (14:52)
[2024-07-07] MEDS: Enoxaparin Sodium 40 MG/0.4 ML SYRINGE SUBCUT (14:53)
[2024-07-07] MEDS: PHENobarbitaL sodium 130 MG/ML VIAL IM Q3Hx2 164 MG IM ×2 (14:54→17:04)
[2024-07-07] MEDS: cefTRIAXone sodium 1 GM VIAL IVPUSH (14:55)
[2024-07-07 15:09] LABS: Thyroid Stimulating Hormone 10.01 uIU/mL (0.32-4.0)
[2024-07-07] MEDS: Sertraline HCL 50 MG TABLET 150 MG PO (16:48)
[2024-07-07] MEDS: Thiamine HCL 100 MG TABLET PO (16:48)
[2024-07-07] MEDS: Folic Acid 1 MG TABLET PO (16:49)
[2024-07-07] MEDS: Lactulose 20 GM/30 ML SOLUTION PO (16:51)
[2024-07-07] MEDS: Phytonadione (Vit K1) Oral 10 MG/ML AMPUL PO (16:53)
[2024-07-07] MEDS: Albumin Human 25 % 100 ML IV ×2 (16:53→22:09)
[2024-07-07] MEDS: 0.9 % Sodium Chloride Flush 3 ML SYRINGE IVFLUSH (16:53)
[2024-07-07] MEDS: predniSONE 20 MG TABLET 40 MG PO (19:11)
[2024-07-07] MEDS: Famotidine 20 MG TABLET PO (22:09)
[2024-07-07] MEDS: PHENobarbitaL 15 MG TABLET 45 MG PO (22:09)
[2024-07-08] VITALS (7 sets, daily range): BP systolic 112–128; BP diastolic 58–78; PULSE 94–104; RESP 16–20; TEMP 36.2–37.3; O2SAT 93–100
[2024-07-08] MEDS: Albumin Human 25 % 100 ML IV ×2 (03:43→11:23)
[2024-07-08] MEDS: 0.9 % Sodium Chloride Flush 3 ML SYRINGE IVFLUSH ×3 (03:44→15:28)
[2024-07-08] MEDS: Levothyroxine Sodium 25 MCG TABLET PO (05:21)
[2024-07-08 06:56] LABS: Hematocrit 27.4 % (37.0-47.0); Hemoglobin 9.2 g/dl (12.0-16.0); Mean Corpuscular HGB Conc 33.6 g/dl (31.0-35.0); Mean Corpuscular Hemoglobin 34.5 pg (27.0-33.0); Mean Corpuscular Volume 102.6 fL (80.0-98.0); Platelet Count 208 X10*3/uL (160-400); Red Blood Count 2.67 X10*6/uL (4.20-5.50); Red Cell Distribution Width 16.3 % (11.0-16.0); White Blood Count 19.5 X10*3/uL (4.8-10.8)
[2024-07-08 07:25] LABS: Alanine Aminotransferase 34 U/L (0-31); Albumin Level 3.3 g/dL (3.5-5.0); Alkaline Phosphatase 452 U/L (39-117); Anion Gap 12 (12-20); Aspartate Amino Transferase 127 U/L (5-31); Bilirubin Total 9.4 mg/dL (0.0-1.0); Blood Urea Nitrogen 5 mg/dL (9-16); Calcium 7.4 mg/dL (8.4-10.2); Carbon Dioxide 27 mmol/L (22-29); Chloride 100 mmol/L (96-108); Creatinine Clr Calc Pharmacy 119.9; Estimated Glomerular Filt Rate > 60; Glucose Random 135 mg/dL (60-115); Iron 46 mcg/dL (30-160); Percent Iron Saturation 64 % (15-50); Potassium 3.1 mmol/L (3.3-5.1); Sodium 136 mmol/L (135-145); Total Iron Binding Capacity 72 mcg/dL (228-428); Total Protein 6.3 g/dL (6.5-8.0); Unsaturated Iron Binding 26 ug/dL
[2024-07-08 07:40] LABS: Ferritin 341 ng/mL (10-250)
[2024-07-08 07:52] LABS: Folate 12.4 ng/mL (> or = 4.0); Vitamin B12 > 2000 pg/mL (200-900)
[2024-07-08] MEDS: Lactulose 20 GM/30 ML SOLUTION PO (08:07)
[2024-07-08] MEDS: PHENobarbitaL 15 MG TABLET 45 MG PO ×2 (08:07→21:32)
[2024-07-08] MEDS: Potassium Chloride ER 20 MEQ TAB.ER.PRT 40 MEQ PO (08:08)
[2024-07-08] MEDS: Multivitamin TABLET 1 TAB PO (08:08)
[2024-07-08] MEDS: Magnesium Oxide 400 MG TABLET PO (08:09)
[2024-07-08] MEDS: Thiamine HCL 100 MG TABLET PO (08:09)
[2024-07-08] MEDS: Famotidine 20 MG TABLET PO ×2 (08:09→21:33)
[2024-07-08] MEDS: Folic Acid 1 MG TABLET PO (08:09)
[2024-07-08] MEDS: Docusate Sodium 100 MG CAPSULE PO (08:09)
[2024-07-08] MEDS: predniSONE 20 MG TABLET 40 MG PO (08:09)
[2024-07-08] MEDS: Phytonadione (Vit K1) Oral 10 MG/ML AMPUL PO (08:10)
[2024-07-08 08:22] LABS: Magnesium 1.9 mg/dL (1.6-2.6)
--- NOTE | 2024-07-08 08:27 | PC.NURSE ---
took over care of patient at 7am, patient a&ox3, etcher enameling intact nsr, ciwa 0, rr equal/non labored, pt currently denying pain/discomfort, pt took am medications- states she takes zoloft at 7pm not in the am- will notify pharmacy, ambulatory with steady gait, call kaur within reach, will continue to monitor
[2024-07-08 08:39] LABS: Free T4 (Free Thyroxine) 0.81 ng/dL (0.71-1.85)
[2024-07-08] MEDS: NORGESTIMATE ETHINYL ESTRADIOL 1 EACH PO (08:45)
[2024-07-08 09:15] LABS: Adenovirus PCR Not Detected (Not Detect.); Bordetella parapertussis PCR Not Detected (Not Detect.); Bordetella pertussis PCR Not Detected (Not Detect.); Chlamydia pneumoniae PCR Not Detected (Not Detect.); Coronavirus 229E PCR Not Detected (Not Detect.); Coronavirus HKU1 PCR Not Detected (Not Detect.); Coronavirus NL63 PCR Not Detected (Not Detect.); Coronavirus OC43 PCR Not Detected (Not Detect.); Human metapneumovirus PCR Not Detected (Not Detect.); Influenza A PCR Not Detected (Not Detect.); Influenza B PCR Not Detected (Not Detect.); Mycoplasma pneumoniae PCR Not Detected (Not Detect.); Parainfluenza 1 PCR Not Detected (Not Detect.); Parainfluenza 2 PCR Not Detected (Not Detect.); Parainfluenza 3 PCR Not Detected (Not Detect.); Parainfluenza 4 PCR Not Detected (Not Detect.); RSV PCR Not Detected (Not Detect.); Rhino/Enterovirus PCR Not Detected (Not Detect.)
[2024-07-08 09:30] LABS: SARS-CoV-2 PCR Not Detected (Not Detect.)
[2024-07-08 11:00] LABS: Ammonia 74 umol/L (13-55)
--- NOTE | 2024-07-08 14:04 | MHC.RECOVRN ---
AUDIT-C Brief Intervention Pt had positive screen for unhealthy alcohol use on admission, subsequently met with t/w to discuss alcohol use and recovery supports/options. This tag writer met with patient to discuss current alcohol use and concerns related to increased risk of alcohol related problems.? Pt sitting in bed, awake, alert, easily engages in conversation. Pt reports 3 glasses (each glass the size of 1.5 regular glasses) white wine daily since December. Prior to December, pt reports alcohol use occasionally, including every Thursday at family lunch. Pt reports alcohol use increased in December due to depression r/t neuropathy she thought was never going to go away. Discussed how alcohol use has impacted health, including negative impact on overall physical health resulting in current hospitalization. Pt reports her partner, Riki, is not aware of the extent of pts alcohol use which has been stressful and exhausting. This is patient's first AUD related admission. Pt reports family hx AUD (father). Father at age 53 due to AUD and DM complications. Withdrawal History: has never experienced withdrawal Treatment History: no treatment history Supports:?family, including partner Riki, however, nobody is aware of the extent of patients alcohol use Discussed risk reduction strategies including drinking below the recommended limit. Provided pt with written resources including information on inpatient and outpatient treatment, KAMALA, harm reduction, and recovery coaching. Pt plans to review resources, is unsure at this time if she would like referrals or to start KAMALA. Pt provided with t/w contact information if questions or concerns arise. Denies other questions or concerns at this time.?
--- NOTE | 2024-07-08 14:18 | P.PNIM_ITS ---
Subjective Subjective Date of Service: 07/08/24 Interval History: elevated lft, abd pain Review of Systems abd pain improving lft;s similar Physical Exam 2 Vital Signs: Vital Signs: Last Vital Signs Temp 97.2 F 07/08/24 12:00 Pulse 98 07/08/24 12:00 Resp 19 07/08/24 12:00 BP 112/78 07/08/24 12:00 Pulse Ox 94 07/08/24 12:00 O2 Del Method Room Air 07/08/24 12:00 BMI result Body Mass Index 25.2 Appearance: Alert.? Oriented X3.? Eyes: icteric cvs: rrr, [id number] . res: clear to auscultation ,no rhonchii or wheezing abd: no rebound or guarding ,mild diffuse discomfort, bs present. ext pulses present , no cyanosis . neuro: axo3 , nonfocal. Objective Data Active Medications Benzonatate (Benzonatate 100 Mg Capsule) 100 mg PO TID PRN PRN Reason: Cough Calcium Carbonate (Calcium Carbonate 750 Mg Tab.Chew) 750 mg PO Q4H PRN PRN Reason: Heartburn Docusate Sodium (Docusate Sodium 100 Mg Capsule) 100 mg PO DAILY [facility] [place] Last Admin: 07/08/24 08:09 Dose: 100 mg Documented By: ANGEL Enoxaparin Sodium (Enoxaparin Sodium 40 Mg/0.4 Ml Syringe) 40 mg SUBCUT Q24H [facility] [place] Last Admin: 07/07/24 14:53 Dose: 40 mg Documented By: TRISTAN Famotidine (Famotidine 20 Mg Tablet) 20 mg PO BID [facility] [place] Last Admin: 07/08/24 08:09 Dose: 20 mg Documented By: ANGEL Folic Acid (Folic Acid 1 Mg Tablet) 1 mg PO DAILY [facility] [place] Last Admin: 07/08/24 08:09 Dose: 1 mg Documented By: ANGEL Hydroxyzine HCl (Hydroxyzine Hcl 25 Mg Tablet) 25 mg PO Q6H PRN PRN Reason: Anxiety Lactulose (Lactulose 20 Gm/30 Ml Solution) 20 gm PO DAILY [facility] [place] Last Admin: 07/08/24 08:07 Dose: 20 gm Documented By: ANGEL Levothyroxine Sodium (Levothyroxine Sodium 25 Mcg Tablet) 25 mcg PO DAILY@0600 [facility] [place] Last Admin: 07/08/24 05:21 Dose: 25 mcg Documented By: MATTIE Magnesium Hydroxide (Milk Of Magnesia 30 Ml Oral.Susp) 30 ml PO DAILY PRN PRN Reason: Constipation Magnesium Oxide (Magnesium Oxide 400 Mg Tablet) 400 mg PO DAILY [facility] [place] Last Admin: 07/08/24 08:09 Dose: 400 mg Documented By: ANGEL Multivitamins/Vitamin C (Multivitamin Tablet) 1 tab PO DAILY [facility] [place] Stop: 07/10/24 14:49 Last Admin: 07/08/24 08:08 Dose: 1 tab Documented By: ANGEL Pt Own (Norgestimate -Ethinyl Estradiol [ [id number]] 0.18/0.215/0.25 M 1 tab PO DAILY [facility] [place] Last Admin: 07/08/24 08:45 Dose: 1 tab Documented By: ANGEL Pharmacy Consult (Consult Rx Etoh Phenob Im/Po) 1 each MISCELLANE ONCE PRN; Protocol PRN Reason: Consult order Phenobarbital (Phenobarbital 15 Mg Tablet) 45 mg PO BID [facility] [place]; Protocol Stop: 07/09/24 09:01 Last Admin: 07/08/24 08:07 Dose: 45 mg Documented By: ANGEL Phenobarbital (Phenobarbital 15 Mg Tablet) 15 mg PO BID [facility] [place]; Protocol Stop: 07/11/24 09:01 Phenobarbital (Phenobarbital 15 Mg Tablet) 15 mg PO DAILY [facility] [place]; Protocol Stop: 07/13/24 09:01 Prednisone (Prednisone 20 Mg Tablet) 40 mg PO DAILY [facility] [place] Last Admin: 07/08/24 08:09 Dose: 40 mg Documented By: ANGEL Sertraline HCl (Sertraline Hcl 50 Mg Tablet) 150 mg PO DAILY@1900 [facility] [place] Sodium Chloride (0.9 % Sodium Chloride Flush 3 Ml Syringe) 3 ml IVFLUSH QSHIFT [facility] [place] Last Admin: 07/08/24 08:10 Dose: 3 ml Documented By: ANGEL Thiamine HCl (Thiamine Hcl 100 Mg Tablet) 100 mg PO DAILY [facility] [place] Stop: 07/10/24 14:49 Last Admin: 07/08/24 08:09 Dose: 100 mg Documented By: ANGEL Labs 07/08/24 05:48 07/08/24 05:48 Labs: Laboratory Results - last 24 hr 11/07/07/24 07/07/24 00:33 14:40 15:12 MCV MCH MCHC RDW Plt Count MPV Absolute Nucleated RBC Nucleated RBC % (auto) PT 18.9 H INR 1.6 H Anion Gap Estim Creat Clear Calc Estimated GFR Random Glucose Calcium Magnesium 1.8 Iron TIBC % Saturation Unsat Iron Binding Ferritin Total Bilirubin AST ALT Alkaline Phosphatase Ammonia Total Protein Albumin Vitamin B12 Folate TSH 10.01 H Free T4 Respiratory Panel Farias See Note Adenovirus (Rapid PCR) Not Detected B.pert (TEM-PCR) Not Detected B.parapertussis DNA PCR Not Detected C. pneumoniae DNA (PCR) Not Detected Coronavirus OC43 (PCR) Not Detected Coronavirus HKU1 (PCR) Not Detected Coronavirus 229E (PCR) Not Detected Coronavirus NL63 (PCR) Not Detected Human Metapneumovir PCR Not Detected Influenza A (RT-PCR) Not Detected Influenza B (RT-PCR) Not Detected M. pneumoniae (PCR) Not Detected Parainfluenza 1 (PCR) Not Detected Parainfluenza 2 (PCR) Not Detected Parainfluenza 3 (PCR) Not Detected Parainfluenza 4 (PCR) Not Detected RSV (PCR) Not Detected Entero/Rhino (PCR) Not Detected SARS-CoV-2 RNA (RT-PCR) Not Detected 07/08/24 07/08/24 05:48 10:45 MCV 102.6 H MCH 34.5 H MCHC 33.6 RDW 16.3 H Plt Count 208 MPV 10.0 Absolute Nucleated RBC 0.000 Nucleated RBC % (auto) 0.0 PT INR Anion Gap 12 Estim Creat Clear Calc 119.9 Estimated GFR > 60 Random Glucose 135 H Calcium 7.4 L D Magnesium 1.9 Iron 46 TIBC 72 L % Saturation 64 H Unsat Iron Binding 26 Ferritin 341 H Total Bilirubin 9.4 H AST 127 H ALT 34 H Alkaline Phosphatase 452 H Ammonia 74 H Total Protein 6.3 L Albumin 3.3 L Vitamin B12 > 2000 H Folate 12.4 TSH Free T4 0.81 Respiratory Panel Farias Adenovirus (Rapid PCR) B.pert (TEM-PCR) B.parapertussis DNA PCR C. pneumoniae DNA (PCR) Coronavirus OC43 (PCR) Coronavirus HKU1 (PCR) Coronavirus 229E (PCR) Coronavirus NL63 (PCR) Human Metapneumovir PCR Influenza A (RT-PCR) Influenza B (RT-PCR) M. pneumoniae (PCR) Parainfluenza 1 (PCR) Parainfluenza 2 (PCR) Parainfluenza 3 (PCR) Parainfluenza 4 (PCR) RSV (PCR) Entero/Rhino (PCR) SARS-CoV-2 RNA (RT-PCR) Microbiology Microbiology Results: Microbiology 07/07/24 07:12 Blood Culture - Preliminary Blood - Venous No growth after 24 hours. 07/07/24 07:12 Blood Culture - Preliminary Blood - Venous No growth after 24 hours. Assessment and Plan (1) Abdominal swelling: Status: Acute (2) Elevated LFTs: Status: Acute (3) Acute alcoholic hepatitis: Status: Acute Assessment and Plan: 39-year-old female with a PMH significant for alcohol use disorder, hypothyroidism, and anxiety?who presents to the ED due to abnormal outpatient labs. Pt reports has been feeling unwell for the past 2 months. Pt will be admitted to the hospital for treatment further evaluation of abdominal distention and elevated LFTs concerning for acute alcoholic hepatitis. Elevated LFTs-possible alcoholic hepatitis. bilirubin 9.4, AST, ALT ,alkphos seems improving mild abd tenderness. Imaging showing likely cirrhosis with superimposed possible acute alcoholic hepatitis vs tumor infiltration Trace amount of ascites in pelvis, not enough for even a diagnostic tap according to IR GI consult -possible alcoholic hepatitis-added prednisone ,moniter lft's daily has elevated inr -added po vitamink 10 mg day2 elevated ammonia -mental status seems baseline -on lactulose -she says she had 3 bm's in last 24 hrs , moniter bm's (goal 3 /day). Leukocytosis WBCs 22.9-19.5 Likely reactionary-no new symptoms No sepsis, no clear source of infection Tachycardia and tachypnea secondary to anxiety Patient given IV antibiotics in the ED, will hold off on additional ABX for now CXR-negative ,Only trace ascites, not enough for diagnostic tap,blood cultures pending Macrocytic anemia: denies any blood in stool iron levels normal , tibc ,iron sats -elevated b12 and folate seems fine Alcohol use disorder: CIWA continue phenobarb protocol, will continue,Thiamine, folic acid, multivitamin, famotidine. Addiction medicine consult Monitor on telemetry acute hypokalemia : added po potassium Anxiety Continue sertraline Hydroxyzine p.r.n. Hypothyroidism Continue levothyroxine TSH: 10 , added free t4. Full Code DVT Prophylaxis: Lovenox Pt will require a hospitalization of at least two nights for treatment of?elevated LFTs concerning for acute alcoholic hepatitis. Patient will require close monitoring of labs and specialist consultation with GI for additional workup/treatment. Quality Stroke Does the patient have a stroke diagnosis?: No VTE Prior VTE?: No VTE Risk Level:: Medical - moderate - high VTE Device Contraindication: Treatment Not Indicated VTE Drug Contraindication: N/A - Med Ordered
[2024-07-08] MEDS: Enoxaparin Sodium 40 MG/0.4 ML SYRINGE SUBCUT (15:26)
[2024-07-08] MEDS: Sertraline HCL 50 MG TABLET 150 MG PO (21:32)
[2024-07-09] VITALS (7 sets, daily range): BP systolic 113–138; BP diastolic 63–79; PULSE 94–116; RESP 12–19; TEMP 36.2–37.2; O2SAT 92–97
[2024-07-09] MEDS: Levothyroxine Sodium 25 MCG TABLET PO (05:46)
[2024-07-09] MEDS: Benzonatate 100 MG CAPSULE PO (05:46)
[2024-07-09 07:58] LABS: Hematocrit 27.4 % (37.0-47.0); Hemoglobin 9.5 g/dl (12.0-16.0); Mean Corpuscular HGB Conc 34.7 g/dl (31.0-35.0); Mean Corpuscular Hemoglobin 35.2 pg (27.0-33.0); Mean Corpuscular Volume 101.5 fL (80.0-98.0); Mean Platelet Volume 9.8 fL (9.4-12.3); Platelet Count 251 X10*3/uL (160-400); Red Cell Distribution Width 16.7 % (11.0-16.0); White Blood Count 22.3 X10*3/uL (4.8-10.8)
[2024-07-09] MEDS: Famotidine 20 MG TABLET PO ×2 (08:03→20:29)
[2024-07-09] MEDS: Multivitamin TABLET 1 TAB PO (08:03)
[2024-07-09] MEDS: PHENobarbitaL 15 MG TABLET 45 MG PO (08:03)
[2024-07-09] MEDS: predniSONE 20 MG TABLET 40 MG PO (08:03)
[2024-07-09] MEDS: hydrOXYzine HCL 25 MG TABLET PO (08:03)
[2024-07-09] MEDS: Docusate Sodium 100 MG CAPSULE PO (08:03)
[2024-07-09] MEDS: Magnesium Oxide 400 MG TABLET PO ×2 (08:04→17:08)
[2024-07-09] MEDS: 0.9 % Sodium Chloride Flush 3 ML SYRINGE IVFLUSH ×3 (08:04→20:30)
[2024-07-09] MEDS: Folic Acid 1 MG TABLET PO (08:04)
[2024-07-09] MEDS: Thiamine HCL 100 MG TABLET PO (08:05)
[2024-07-09] MEDS: NORGESTIMATE ETHINYL ESTRADIOL 1 EACH PO (08:06)
[2024-07-09] MEDS: Phytonadione (Vit K1) Oral 10 MG/ML AMPUL PO (08:10)
[2024-07-09 08:52] LABS: Alanine Aminotransferase 32 U/L (0-31); Albumin Level 3.1 g/dL (3.5-5.0); Alkaline Phosphatase 407 U/L (39-117); Anion Gap 13 (12-20); Aspartate Amino Transferase 149 U/L (5-31); Bilirubin Total 8.3 mg/dL (0.0-1.0); Blood Urea Nitrogen 5 mg/dL (9-16); Calcium 8.2 mg/dL (8.4-10.2); Carbon Dioxide 26 mmol/L (22-29); Chloride 102 mmol/L (96-108); Creatinine Clr Calc Pharmacy 106.9; Estimated Glomerular Filt Rate > 60; Glucose Random 97 mg/dL (60-115); Potassium 2.8 mmol/L (3.3-5.1); Sodium 138 mmol/L (135-145); Total Protein 5.9 g/dL (6.5-8.0)
--- NOTE | 2024-07-09 08:52 | MHC.CM.PN ---
Pt self-care, lives at home with her boyfriend who will transport her home at discharge. Pt states her boyfriend is her HCP, copy was requested. PCP: Dr. aKrina Chapman
[2024-07-09] MEDS: Potassium Chloride/H20 10 MEQ/100 ML PIGGYBACK 100 MEQ IV ×2 (09:37→10:41)
[2024-07-09] MEDS: Potassium Chloride ER 20 MEQ TAB.ER.PRT 40 MEQ PO (09:37)
[2024-07-09 09:44] LABS: Magnesium 1.7 mg/dL (1.6-2.6)
--- NOTE | 2024-07-09 10:09 | MHC.RECOVRN ---
Met with pt in 474 to follow up and provide support.? Pt awake, alert, laying in bed resting and easily engages in conversation.? Pt reports she had a chance to review the literature left yesterday by RN and she is interested in discussing with provider starting on Naltrexone. She would like to wait until D/C and come over to [facility] as walk in. Spoke with pt's nurse Nataly who reports she will definitely be in through Mon as LFT's are still very elevated. T/W offered supportive visit tomorrow but pt. refused. She agreed to Mon check in to better understand D/C plan and when she will come to clinic. Report to ACS team and request for nurse F/U on Mon. Pt denies other concerns at this time.? T/w available as needed.
[2024-07-09 10:12] LABS: Appearance Urine Cloudy; Color Urine Dark Yellow; Glucose Urine UA Negative (Negative); Leukocyte Esterase Urine Trace (Negative); Nitrite Urine Positive (Negative); UMIC TRIGGER UACC YES; Urine Blood Negative (Negative); Urine Ketones Negative (Negative); Urine Protein Negative (Neg-Trace)
[2024-07-09 10:13] LABS: UPreg QC Valid YES; Urine Pregnancy NEGATIVE (NEGATIVE)
[2024-07-09 10:22] LABS: Bacteria Urine None Seen (None Seen); Hyaline Casts Urine 0-2 /LPF (0-2); Other Crystals Urine Present; RBC Urine 0-2 /HPF (0-2); UACC Culture Trigger YES; WBC Urine 0-5 /HPF (0-5)
[2024-07-09] MEDS: ondansetron HCL 4 MG/2 ML VIAL IVPUSH (10:42)
--- NOTE | 2024-07-09 11:58 | P.PNIM_ITS ---
Subjective Subjective Date of Service: 07/09/24 Interval History: elevated lft, abd pain Review of Systems abd pain improving,lft-seems similar ,bilirubin somewhat improving has some abd crampin she says she had multiple bm's after lactulose Physical Exam 2 Vital Signs: Vital Signs: Last Vital Signs Temp 98.6 F 07/09/24 10:50 Pulse 102 H 07/09/24 10:50 Resp 18 07/09/24 10:50 BP 122/69 07/09/24 10:50 Pulse Ox 95 07/09/24 10:50 O2 Del Method Room Air 07/09/24 10:50 BMI result Body Mass Index 25.2 Appearance: Alert.? Oriented X3.? Eyes: icteric cvs: rrr, [id number] . res: clear to auscultation ,no rhonchii or wheezing abd: no rebound or guarding ,has some abd cramping, bs present. ext pulses present , no cyanosis . neuro: axo3 , nonfocal. Objective Data Active Medications Benzonatate (Benzonatate 100 Mg Capsule) 100 mg PO TID PRN PRN Reason: Cough Last Admin: 07/09/24 05:46 Dose: 100 mg Documented By: ROBB Calcium Carbonate (Calcium Carbonate 750 Mg Tab.Chew) 750 mg PO Q4H PRN PRN Reason: Heartburn Docusate Sodium (Docusate Sodium 100 Mg Capsule) 100 mg PO DAILY [facility] [place] Last Admin: 07/09/24 08:03 Dose: 100 mg Documented By: RINA Enoxaparin Sodium (Enoxaparin Sodium 40 Mg/0.4 Ml Syringe) 40 mg SUBCUT Q24H [facility] [place] Last Admin: 07/08/24 15:26 Dose: 40 mg Documented By: DOBROB Famotidine (Famotidine 20 Mg Tablet) 20 mg PO BID [facility] [place] Last Admin: 07/09/24 08:03 Dose: 20 mg Documented By: RINA Folic Acid (Folic Acid 1 Mg Tablet) 1 mg PO DAILY [facility] [place] Last Admin: 07/09/24 08:04 Dose: 1 mg Documented By: RINA Hydroxyzine HCl (Hydroxyzine Hcl 25 Mg Tablet) 25 mg PO Q6H PRN PRN Reason: Anxiety Last Admin: 07/09/24 08:03 Dose: 25 mg Documented By: RINA Lactulose (Lactulose 20 Gm/30 Ml Solution) 20 gm PO DAILY [facility] [place] Last Admin: 07/09/24 09:27 Dose: Not Given Documented By: RINA Non-Admin Reason: ok to hold per MD vicente Levothyroxine Sodium (Levothyroxine Sodium 25 Mcg Tablet) 25 mcg PO DAILY@0600 [facility] [place] Last Admin: 07/09/24 05:46 Dose: 25 mcg Documented By: ROBB Magnesium Hydroxide (Milk Of Magnesia 30 Ml Oral.Susp) 30 ml PO DAILY PRN PRN Reason: Constipation Magnesium Oxide (Magnesium Oxide 400 Mg Tablet) 400 mg PO DAILY [facility] [place] Last Admin: 07/09/24 08:04 Dose: 400 mg Documented By: RINA Multivitamins/Vitamin C (Multivitamin Tablet) 1 tab PO DAILY [facility] [place] Stop: 07/10/24 14:49 Last Admin: 07/09/24 08:03 Dose: 1 tab Documented By: RINA Pt Own (Norgestimate -Ethinyl Estradiol [ [id number]] 0.18/0.215/0.25 M 1 tab PO DAILY [facility] [place] Last Admin: 07/09/24 08:06 Dose: 1 tab Documented By: RINA Pharmacy Consult (Consult Rx Etoh Phenob Im/Po) 1 each MISCELLANE ONCE PRN; Protocol PRN Reason: Consult order Phenobarbital (Phenobarbital 15 Mg Tablet) 15 mg PO BID [facility] [place]; Protocol Stop: 07/11/24 09:01 Phenobarbital (Phenobarbital 15 Mg Tablet) 15 mg PO DAILY [facility] [place]; Protocol Stop: 07/13/24 09:01 Prednisone (Prednisone 20 Mg Tablet) 40 mg PO DAILY [facility] [place] Last Admin: 07/09/24 08:03 Dose: 40 mg Documented By: RINA Sertraline HCl (Sertraline Hcl 50 Mg Tablet) 150 mg PO DAILY@1900 [facility] [place] Last Admin: 07/08/24 21:32 Dose: 150 mg Documented By: ROBB Sodium Chloride (0.9 % Sodium Chloride Flush 3 Ml Syringe) 3 ml IVFLUSH QSHIFT [facility] [place] Last Admin: 07/09/24 10:42 Dose: 3 ml Documented By: RINA Thiamine HCl (Thiamine Hcl 100 Mg Tablet) 100 mg PO DAILY [facility] [place] Stop: 07/10/24 14:49 Last Admin: 07/09/24 08:05 Dose: 100 mg Documented By: RINA Labs 07/09/24 07:02 07/09/24 07:02 Labs: Laboratory Results - last 24 hr 07/09/24 07/09/24 07:02 09:44 MCV 101.5 H MCH 35.2 H MCHC 34.7 RDW 16.7 H Plt Count 251 MPV 9.8 Absolute Nucleated RBC 0.000 Nucleated RBC % (auto) 0.0 Anion Gap 13 Estim Creat Clear Calc 106.9 Estimated GFR > 60 Random Glucose 97 Calcium 8.2 L D Magnesium 1.7 Total Bilirubin 8.3 H AST 149 H ALT 32 H Alkaline Phosphatase 407 H Total Protein 5.9 L Albumin 3.1 L Urine Color Dark Yellow Urine Appearance Cloudy Urine pH 6.0 Ur Specific Julian 1.020 Urine Protein Negative Urine Glucose (UA) Negative Urine Ketones Negative Urine Blood Negative Urine Nitrite Positive H Ur Leukocyte Esterase Trace H Urine RBC 0-2 Urine WBC 0-5 Ur Squamous Epith Cells 3-5 Other Crystals Present Urine Bacteria None Seen Hyaline Casts 0-2 Urine Test NEGATIVE Microbiology Microbiology Results: Microbiology 07/07/24 07:12 Blood Culture - Preliminary Blood - Venous No growth after 48 hours. 07/07/24 07:12 Blood Culture - Preliminary Blood - Venous No growth after 48 hours. Assessment and Plan (1) Abdominal swelling: Status: Acute (2) Elevated LFTs: Status: Acute (3) Acute alcoholic hepatitis: Status: Acute Assessment and Plan: 39-year-old female with a PMH significant for alcohol use disorder, hypothyroidism, and anxiety?who presents to the ED due to abnormal outpatient labs. Pt reports has been feeling unwell for the past 2 months. Pt will be admitted to the hospital for treatment further evaluation of abdominal distention and elevated LFTs concerning for acute alcoholic hepatitis. Elevated LFTs-possible alcoholic hepatitis. bilirubin 8.3, AST, ALT ,alkphos seems similar. mild abd tenderness. Imaging showing likely cirrhosis with superimposed possible acute alcoholic hepatitis vs tumor infiltration Trace amount of ascites in pelvis, not enough for even a diagnostic tap according to IR GI consult -possible alcoholic hepatitis-added prednisone ,moniter lft's daily has elevated pt/ inr -added po vitamink 10 mg day3. elevated ammonia -mental status seems baseline -on lactulose -she says she had 3 bm's in last 24 hrs , moniter bm's (goal 3 /day). Leukocytosis WBCs 22.9-19.5-22.3 Likely reactionary-no new symptoms No sepsis, no clear source of infection Tachycardia secondary to anxiety CXR-negative ,Only trace ascites, not enough for diagnostic tap,blood cultures neg@48hrs ua -no bacteruria or pyuria, urine cultures pending diarrhae -possible realted to luxative (lactulose and colace). if continue to have diarrahae off luxatives-will consider stool studies Macrocytic anemia: denies any blood in stool iron levels normal , tibc ,iron sats -elevated b12 and folate seems fine. acute hypokalemia: added po and iv replacements mag normal moniter electrolytes closely. Alcohol use disorder: CIWA continue phenobarb protocol, will continue,Thiamine, folic acid, multivitamin, famotidine. Addiction medicine consult Monitor on telemetry acute hypokalemia : added po potassium Anxiety Continue sertraline Hydroxyzine p.r.n. Hypothyroidism TSH: 10 , free t4 normal. Continue levothyroxine. Full Code DVT Prophylaxis: Lovenox ongoing hospitalization need for treatment of?elevated LFTs concerning for acute alcoholic hepatitis, acute hypokalemia ,diarrhae: Close monitoring of renal function electrolytes, LFTs and need GI follow-up. Quality Stroke Does the patient have a stroke diagnosis?: No VTE Prior VTE?: No VTE Risk Level:: Medical - moderate - high VTE Device Contraindication: Treatment Not Indicated VTE Drug Contraindication: N/A - Med Ordered
[2024-07-09] MEDS: Enoxaparin Sodium 40 MG/0.4 ML SYRINGE SUBCUT (12:23)
[2024-07-09 13:56] LABS: INTERNATIONAL NORM RATIO 1.9 (0.9-1.1); Prothrombin Time 21.6 SEC (10.9-12.4)
[2024-07-09 14:01] LABS: Ammonia 72 umol/L (13-55)
[2024-07-09] MEDS: Sertraline HCL 50 MG TABLET 150 MG PO (20:26)
[2024-07-09] MEDS: PHENobarbitaL 15 MG TABLET PO (20:29)
[2024-07-09 20:50] LABS: Potassium 3.3 mmol/L (3.3-5.1)
[2024-07-10 04:00] VITALS: BP 126/72; PULSE 117; RESP 19; TEMP 37; O2SAT 92
[2024-07-10 06:10] LABS: Hematocrit 28.9 % (37.0-47.0); Hemoglobin 9.5 g/dl (12.0-16.0); Mean Corpuscular HGB Conc 32.9 g/dl (31.0-35.0); Mean Corpuscular Hemoglobin 33.9 pg (27.0-33.0); Mean Corpuscular Volume 103.2 fL (80.0-98.0); Mean Platelet Volume 9.8 fL (9.4-12.3); Platelet Count 229 X10*3/uL (160-400); Red Cell Distribution Width 17.5 % (11.0-16.0); White Blood Count 26.5 X10*3/uL (4.8-10.8)
[2024-07-10] MEDS: Levothyroxine Sodium 25 MCG TABLET PO (06:31)
[2024-07-10 06:33] LABS: Alanine Aminotransferase 38 U/L (0-31); Alkaline Phosphatase 429 U/L (39-117); Anion Gap 12 (12-20); Aspartate Amino Transferase 160 U/L (5-31); Bilirubin Total 8.3 mg/dL (0.0-1.0); Blood Urea Nitrogen 5 mg/dL (9-16); Calcium 7.6 mg/dL (8.4-10.2); Carbon Dioxide 26 mmol/L (22-29); Chloride 102 mmol/L (96-108); Creatinine Clr Calc Pharmacy 119.9; Estimated Glomerular Filt Rate > 60; Glucose Random 88 mg/dL (60-115); Potassium 3.1 mmol/L (3.3-5.1); Sodium 137 mmol/L (135-145); Total Protein 5.9 g/dL (6.5-8.0)
[2024-07-10 06:34] LABS: Chloride 101 mmol/L (96-108); Sodium 137 mmol/L (135-145)
[2024-07-10 06:35] LABS: Alanine Aminotransferase 36 U/L (0-31); Alkaline Phosphatase 433 U/L (39-117); Anion Gap 12 (12-20); Aspartate Amino Transferase 156 U/L (5-31); Bilirubin Total 8.3 mg/dL (0.0-1.0); Blood Urea Nitrogen 5 mg/dL (9-16); Calcium 7.6 mg/dL (8.4-10.2); Carbon Dioxide 27 mmol/L (22-29); Creatinine Clr Calc Pharmacy 117.8; Estimated Glomerular Filt Rate > 60; Glucose Random 89 mg/dL (60-115); Total Protein 5.9 g/dL (6.5-8.0)
[2024-07-10 07:09] VITALS: BP 118/66; PULSE 109; RESP 18; TEMP 36.4; O2SAT 94
[2024-07-10 09:29] LABS: Magnesium 1.7 mg/dL (1.6-2.6)
[2024-07-10] MEDS: Potassium Chloride ER 20 MEQ TAB.ER.PRT 40 MEQ PO (09:36)
[2024-07-10] MEDS: Benzonatate 100 MG CAPSULE PO ×2 (09:37→20:14)
[2024-07-10] MEDS: hydrOXYzine HCL 25 MG TABLET PO (09:37)
[2024-07-10] MEDS: predniSONE 20 MG TABLET 40 MG PO (09:37)
[2024-07-10] MEDS: Multivitamin TABLET 1 TAB PO (09:37)
[2024-07-10] MEDS: PHENobarbitaL 15 MG TABLET PO ×2 (09:38→20:07)
[2024-07-10] MEDS: Folic Acid 1 MG TABLET PO (09:38)
[2024-07-10] MEDS: Thiamine HCL 100 MG TABLET PO (09:38)
[2024-07-10] MEDS: Famotidine 20 MG TABLET PO ×2 (09:38→20:07)
[2024-07-10] MEDS: Magnesium Oxide 400 MG TABLET PO ×2 (09:38→13:51)
[2024-07-10] MEDS: 0.9 % Sodium Chloride Flush 3 ML SYRINGE IVFLUSH ×2 (09:41→13:52)
[2024-07-10] MEDS: NORGESTIMATE ETHINYL ESTRADIOL 1 EACH PO (09:43)
[2024-07-10] MEDS: diphenhydrAMINE HCL 25 MG CAPSULE 12.5 MG PO (10:36)
[2024-07-10] MEDS: Simethicone 80 MG TAB.CHEW PO ×2 (10:36→20:07)
[2024-07-10 10:52] VITALS: BP 105/56; PULSE 103; RESP 18; TEMP 37.4; O2SAT 95
--- NOTE | 2024-07-10 13:36 | P.PNIM_ITS ---
Subjective Subjective Date of Service: 07/10/24 Interval History: elevated lft, abd pain Review of Systems abd pain improving,lft-seems similar ,bilirubin somewhat improving has some abd crampin Physical Exam 2 Vital Signs: Vital Signs: Last Vital Signs Temp 99.4 F 07/10/24 10:52 Pulse 103 H 07/10/24 10:52 Resp 18 07/10/24 10:52 BP 105/56 L 07/10/24 10:52 Pulse Ox 95 07/10/24 10:52 O2 Del Method Room Air 07/10/24 10:52 BMI result Body Mass Index 25.2 Appearance: Alert.? Oriented X3.? Eyes: icteric cvs: rrr, [id number] . res: clear to auscultation ,no rhonchii or wheezing abd: no rebound or guarding ,has some abd cramping, bs present. ext pulses present , no cyanosis . neuro: axo3 , nonfocal. Objective Data Active Medications Benzonatate (Benzonatate 100 Mg Capsule) 100 mg PO TID PRN PRN Reason: Cough Last Admin: 07/10/24 09:37 Dose: 100 mg Documented By: RINA Calcium Carbonate (Calcium Carbonate 750 Mg Tab.Chew) 750 mg PO Q4H PRN PRN Reason: Heartburn Docusate Sodium (Docusate Sodium 100 Mg Capsule) 100 mg PO DAILY [facility] Last Admin: 07/09/24 08:03 Dose: 100 mg Documented By: RINA Enoxaparin Sodium (Enoxaparin Sodium 40 Mg/0.4 Ml Syringe) 40 mg SUBCUT Q24H [facility] Last Admin: 07/09/24 12:23 Dose: 40 mg Documented By: RINA Famotidine (Famotidine 20 Mg Tablet) 20 mg PO BID [facility] Last Admin: 07/10/24 09:38 Dose: 20 mg Documented By: RINA Folic Acid (Folic Acid 1 Mg Tablet) 1 mg PO DAILY [facility] Last Admin: 07/10/24 09:38 Dose: 1 mg Documented By: RINA Hydroxyzine HCl (Hydroxyzine Hcl 25 Mg Tablet) 25 mg PO Q6H PRN PRN Reason: Anxiety Last Admin: 07/10/24 09:37 Dose: 25 mg Documented By: RINA Lactulose (Lactulose 20 Gm/30 Ml Solution) 20 gm PO DAILY [facility] Last Admin: 07/09/24 09:27 Dose: Not Given Documented By: RINA Non-Admin Reason: ok to hold per MD vicente Levothyroxine Sodium (Levothyroxine Sodium 25 Mcg Tablet) 25 mcg PO DAILY@0600 [facility] Last Admin: 07/10/24 06:31 Dose: 25 mcg Documented By: ROBB Magnesium Hydroxide (Milk Of Magnesia 30 Ml Oral.Susp) 30 ml PO DAILY PRN PRN Reason: Constipation Magnesium Oxide (Magnesium Oxide 400 Mg Tablet) 400 mg PO BIDWM [facility] Last Admin: 07/10/24 09:38 Dose: 400 mg Documented By: RINA Multivitamins/Vitamin C (Multivitamin Tablet) 1 tab PO DAILY [facility] Stop: 07/10/24 14:49 Last Admin: 07/10/24 09:37 Dose: 1 tab Documented By: RINA Pt Own (Norgestimate -Ethinyl Estradiol [ Oee-Ir-Grihwy] 0.18/0.215/0.25 M 1 tab PO DAILY [facility] Last Admin: 07/10/24 09:43 Dose: 1 tab Documented By: RINA Pharmacy Consult (Consult Rx Etoh Phenob Im/Po) 1 each MISCELLANE ONCE PRN; Protocol PRN Reason: Consult order Phenobarbital (Phenobarbital 15 Mg Tablet) 15 mg PO BID [facility]; Protocol Stop: 07/11/24 09:01 Last Admin: 07/10/24 09:38 Dose: 15 mg Documented By: RINA Phenobarbital (Phenobarbital 15 Mg Tablet) 15 mg PO DAILY [facility]; Protocol Stop: 07/13/24 09:01 Prednisone (Prednisone 20 Mg Tablet) 40 mg PO DAILY [facility] Last Admin: 07/10/24 09:37 Dose: 40 mg Documented By: RINA Sertraline HCl (Sertraline Hcl 50 Mg Tablet) 150 mg PO DAILY@1900 [facility] Last Admin: 07/09/24 20:26 Dose: 150 mg Documented By: ROBB Simethicone (Simethicone 80 Mg Tab.Chew) 80 mg PO BID [facility] Last Admin: 07/10/24 10:36 Dose: 80 mg Documented By: RINA Sodium Chloride (0.9 % Sodium Chloride Flush 3 Ml Syringe) 3 ml IVFLUSH QSHIFT [facility] Last Admin: 07/10/24 09:41 Dose: 3 ml Documented By: RINA Thiamine HCl (Thiamine Hcl 100 Mg Tablet) 100 mg PO DAILY [facility] Stop: 07/10/24 14:49 Last Admin: 07/10/24 09:38 Dose: 100 mg Documented By: RINA Labs 07/10/24 05:19 07/10/24 05:19 Labs: Laboratory Results - last 24 hr 07/09/24 07/09/24 07/10/24 13:44 20:24 05:18 MCV MCH MCHC RDW Plt Count MPV Absolute Nucleated RBC Nucleated RBC % (auto) Hold Purple Top SEE NOTE PT 21.6 H INR 1.9 H Anion Gap 12 Estim Creat Clear Calc 117.8 Estimated GFR > 60 Random Glucose 89 Calcium 7.6 L D Magnesium 1.7 Total Bilirubin 8.3 H AST 156 H ALT 36 H Alkaline Phosphatase 433 H Ammonia 72 H Total Protein 5.9 L Albumin 3.0 L 07/10/24 05:19 MCV 103.2 H MCH 33.9 H MCHC 32.9 RDW 17.5 H Plt Count 229 MPV 9.8 Absolute Nucleated RBC 0.000 Nucleated RBC % (auto) 0.0 Hold Purple Top PT INR Anion Gap 12 Estim Creat Clear Calc 119.9 Estimated GFR > 60 Random Glucose 88 Calcium 7.6 L Magnesium Total Bilirubin 8.3 H AST 160 H ALT 38 H Alkaline Phosphatase 429 H Ammonia Total Protein 5.9 L Albumin 3.0 L Microbiology Microbiology Results: Microbiology 07/09/24 Unknown Urine Culture - Final Urine clean catch - Clean Catch Midstream No growth. 07/07/24 07:12 Blood Culture - Preliminary Blood - Venous No growth after 48 hours. 07/07/24 07:12 Blood Culture - Preliminary Blood - Venous No growth after 48 hours. Assessment and Plan (1) Abdominal swelling: Status: Acute (2) Elevated LFTs: Status: Acute (3) Acute alcoholic hepatitis: Status: Acute Assessment and Plan: 39-year-old female with a PMH significant for alcohol use disorder, hypothyroidism, and anxiety?who presents to the ED due to abnormal outpatient labs. Pt reports has been feeling unwell for the past 2 months. Pt will be admitted to the hospital for treatment further evaluation of abdominal distention and elevated LFTs concerning for acute alcoholic hepatitis. Elevated LFTs-possible alcoholic hepatitis. bilirubin 8.3, AST, ALT ,alkphos seems similar. mild abd tenderness. Imaging showing likely cirrhosis with superimposed possible acute alcoholic hepatitis vs tumor infiltration Trace amount of ascites in pelvis, not enough for even a diagnostic tap according to IR GI consult -possible alcoholic hepatitis-added prednisone ,moniter lft's daily has elevated pt/ inr -added po vitamink 10 mg day3. elevated ammonia -mental status seems baseline -on lactulose -she says she had 3 bm's in last 24 hrs , moniter bm's (goal 3 /day). Leukocytosis WBCs 22.9-19.5-22.3-26.5 no fever Likely reactionary-no new symptoms No sepsis, no clear source of infection Tachycardia secondary to anxiety CXR-negative ,Only trace ascites, not enough for diagnostic tap,blood cultures neg@48hrs ua -no bacteruria or pyuria, urine cultures -negative diarrhae -pimproved with holding luxative (lactulose and colace). Macrocytic anemia: denies any blood in stool iron levels normal , tibc ,iron sats -elevated b12 and folate seems fine. acute hypokalemia: added po and iv replacements mag normal moniter electrolytes closely. Alcohol use disorder: CIWA continue phenobarb protocol continue,Thiamine, folic acid, multivitamin, famotidine. Addiction medicine consult Monitor on telemetry acute hypokalemia : added po potassium Anxiety Continue sertraline Hydroxyzine p.r.n. Hypothyroidism TSH: 10 , free t4 normal. Continue levothyroxine. Full Code DVT Prophylaxis: Lovenox ongoing hospitalization need for treatment of?elevated LFTs concerning for acute alcoholic hepatitis, acute hypokalemia ,diarrhae: Close monitoring of renal function electrolytes, LFTs and need GI follow-up. Quality Stroke Does the patient have a stroke diagnosis?: No VTE Prior VTE?: No VTE Risk Level:: Medical - moderate - high VTE Device Contraindication: Treatment Not Indicated VTE Drug Contraindication: N/A - Med Ordered
[2024-07-10] MEDS: Enoxaparin Sodium 40 MG/0.4 ML SYRINGE SUBCUT (13:51)
[2024-07-10 15:48] VITALS: BP 99/62; PULSE 97; RESP 16; TEMP 36.3; O2SAT 96
[2024-07-10] MEDS: Sertraline HCL 50 MG TABLET 150 MG PO (18:26)
[2024-07-10 19:39] VITALS: BP 129/75; PULSE 96; RESP 18; TEMP 36.4; O2SAT 94
[2024-07-10] MEDS: Melatonin 3 MG TABLET 6 MG PO (20:40)
[2024-07-10 23:58] VITALS: BP 103/61; PULSE 89; RESP 18; TEMP 36; O2SAT 95
[2024-07-11] VITALS (7 sets, daily range): BP systolic 104–124; BP diastolic 65–72; PULSE 80–96; RESP 14–20; TEMP 36.1–36.8; O2SAT 92–98
[2024-07-11] MEDS: 0.9 % Sodium Chloride Flush 3 ML SYRINGE IVFLUSH ×4 (00:36→20:11)
[2024-07-11] MEDS: Levothyroxine Sodium 25 MCG TABLET PO (05:59)
[2024-07-11] MEDS: Folic Acid 1 MG TABLET PO (08:28)
[2024-07-11] MEDS: NORGESTIMATE ETHINYL ESTRADIOL 1 EACH PO (08:28)
[2024-07-11] MEDS: predniSONE 20 MG TABLET 40 MG PO (08:28)
[2024-07-11] MEDS: Magnesium Oxide 400 MG TABLET PO ×2 (08:29→18:23)
[2024-07-11] MEDS: Famotidine 20 MG TABLET PO ×2 (08:29→20:08)
[2024-07-11] MEDS: Simethicone 80 MG TAB.CHEW PO ×2 (08:29→20:08)
[2024-07-11] MEDS: PHENobarbitaL 15 MG TABLET PO (08:29)
[2024-07-11 11:04] LABS: Hemoglobin 9.8 g/dl (12.0-16.0); Mean Corpuscular HGB Conc 33.8 g/dl (31.0-35.0); Mean Corpuscular Hemoglobin 35.1 pg (27.0-33.0); Mean Corpuscular Volume 103.9 fL (80.0-98.0); Platelet Count 245 X10*3/uL (160-400); Red Blood Count 2.79 X10*6/uL (4.20-5.50); Red Cell Distribution Width 17.4 % (11.0-16.0); White Blood Count 28.2 X10*3/uL (4.8-10.8)
[2024-07-11 11:22] LABS: Alanine Aminotransferase 36 U/L (0-31); Albumin Level 2.8 g/dL (3.5-5.0); Alkaline Phosphatase 385 U/L (39-117); Anion Gap 10 (12-20); Aspartate Amino Transferase 124 U/L (5-31); Bilirubin Total 9.1 mg/dL (0.0-1.0); Blood Urea Nitrogen 7 mg/dL (9-16); Calcium 7.7 mg/dL (8.4-10.2); Carbon Dioxide 27 mmol/L (22-29); Chloride 103 mmol/L (96-108); Creatinine Clr Calc Pharmacy 106.9; Estimated Glomerular Filt Rate > 60; Glucose Random 142 mg/dL (60-115); Potassium 3.5 mmol/L (3.3-5.1); Sodium 136 mmol/L (135-145); Total Protein 5.6 g/dL (6.5-8.0)
--- NOTE | 2024-07-11 12:21 | HO.PM.IMPN ---
Subjective Subjective Date of Service: 07/11/24 Interval History: elevated lft's ,leucocytosis Review of Systems abd pain improving no nausea /vomiting no fevers Physical Exam Vital Signs: Vital Signs: Last Vital Signs Temp 97.8 F 07/11/24 11:54 Pulse 88 07/11/24 11:54 Resp 18 07/11/24 11:54 BP 124/70 07/11/24 11:54 Pulse Ox 94 07/11/24 11:54 O2 Del Method Room Air 07/11/24 11:54 BMI result Body Mass Index 25.2 Appearance: Alert.? Oriented X3.? Eyes: icteric cvs: rrr, [id number] . res: clear to auscultation ,no rhonchii or wheezing abd: no rebound or guarding ,has some abd cramping, bs present. ext pulses present , no cyanosis . neuro: axo3 , nonfocal. Objective Data Active Medications Benzonatate (Benzonatate 100 Mg Capsule) 100 mg PO TID PRN PRN Reason: Cough Last Admin: 07/10/24 20:14 Dose: 100 mg Documented By: ALFREDO Calcium Carbonate (Calcium Carbonate 750 Mg Tab.Chew) 750 mg PO Q4H PRN PRN Reason: Heartburn Docusate Sodium (Docusate Sodium 100 Mg Capsule) 100 mg PO DAILY [facility] Last Admin: 07/09/24 08:03 Dose: 100 mg Documented By: RINA Enoxaparin Sodium (Enoxaparin Sodium 40 Mg/0.4 Ml Syringe) 40 mg SUBCUT Q24H [facility] Last Admin: 07/10/24 13:51 Dose: 40 mg Documented By: RINA Famotidine (Famotidine 20 Mg Tablet) 20 mg PO BID [facility] Last Admin: 07/11/24 08:29 Dose: 20 mg Documented By: MARVIN Folic Acid (Folic Acid 1 Mg Tablet) 1 mg PO DAILY [facility] Last Admin: 07/11/24 08:28 Dose: 1 mg Documented By: MARVIN Hydroxyzine HCl (Hydroxyzine Hcl 25 Mg Tablet) 25 mg PO Q6H PRN PRN Reason: Anxiety Last Admin: 07/10/24 09:37 Dose: 25 mg Documented By: RINA Lactulose (Lactulose 20 Gm/30 Ml Solution) 20 gm PO DAILY [facility] Last Admin: 07/09/24 09:27 Dose: Not Given Documented By: RINA Non-Admin Reason: ok to hold per MD vicente Levothyroxine Sodium (Levothyroxine Sodium 25 Mcg Tablet) 25 mcg PO DAILY@0600 [facility] Last Admin: 07/11/24 05:59 Dose: 25 mcg Documented By: ZARI Magnesium Hydroxide (Milk Of Magnesia 30 Ml Oral.Susp) 30 ml PO DAILY PRN PRN Reason: Constipation Magnesium Oxide (Magnesium Oxide 400 Mg Tablet) 400 mg PO BIDWM [facility] Last Admin: 07/11/24 08:29 Dose: 400 mg Documented By: MARVIN Melatonin (Melatonin 3 Mg Tablet) 6 mg PO BEDTIME PRN PRN Reason: Insomnia Last Admin: 07/10/24 20:40 Dose: 6 mg Documented By: ALFREDO Pt Own (Norgestimate -Ethinyl Estradiol [ Lzu-Dh-Zeahsf] 0.18/0.215/0.25 M 1 tab PO DAILY [facility] Last Admin: 07/11/24 08:28 Dose: 1 tab Documented By: MARVIN Pharmacy Consult (Consult Rx Etoh Phenob Im/Po) 1 each MISCELLANE ONCE PRN; Protocol PRN Reason: Consult order Phenobarbital (Phenobarbital 15 Mg Tablet) 15 mg PO DAILY [facility]; Protocol Stop: 07/13/24 09:01 Prednisone (Prednisone 20 Mg Tablet) 40 mg PO DAILY [facility] Last Admin: 07/11/24 08:28 Dose: 40 mg Documented By: MARVIN Sertraline HCl (Sertraline Hcl 50 Mg Tablet) 150 mg PO DAILY@1900 [facility] Last Admin: 07/10/24 18:26 Dose: 150 mg Documented By: RINA Simethicone (Simethicone 80 Mg Tab.Chew) 80 mg PO BID [facility] Last Admin: 07/11/24 08:29 Dose: 80 mg Documented By: MARVIN Sodium Chloride (0.9 % Sodium Chloride Flush 3 Ml Syringe) 3 ml IVFLUSH QSHIFT [facility] Last Admin: 07/11/24 08:31 Dose: 3 ml Documented By: MARVIN Labs 07/11/24 10:36 07/11/24 10:36 Labs: Laboratory Results - last 24 hr 07/11/24 10:36 MCV 103.9 H MCH 35.1 H MCHC 33.8 RDW 17.4 H Plt Count 245 MPV 10.0 Absolute Nucleated RBC 0.000 Nucleated RBC % (auto) 0.0 Anion Gap 10 L Estim Creat Clear Calc 106.9 Estimated GFR > 60 Random Glucose 142 H Calcium 7.7 L Total Bilirubin 9.1 H AST 124 H ALT 36 H Alkaline Phosphatase 385 H Total Protein 5.6 L Albumin 2.8 L Microbiology Microbiology Results: Microbiology 07/07/24 07:12 Blood Culture - Preliminary Blood - Venous No growth after 48 hours. 07/07/24 07:12 Blood Culture - Preliminary Blood - Venous No growth after 48 hours. 07/09/24 Unknown Urine Culture - Final Urine clean catch - Clean Catch Midstream No growth. Assessment and Plan (1) Abdominal swelling: Status: Acute (2) Elevated LFTs: Status: Acute (3) Acute alcoholic hepatitis: Status: Acute Assessment and Plan: 39-year-old female with a PMH significant for alcohol use disorder, hypothyroidism, and anxiety?who presents to the ED due to abnormal outpatient labs. Pt reports has been feeling unwell for the past 2 months. Pt will be admitted to the hospital for treatment further evaluation of abdominal distention and elevated LFTs concerning for acute alcoholic hepatitis. Elevated LFTs-possible alcoholic hepatitis. bilirubin 8.3, AST, ALT ,alkphos seems similar. mild abd tenderness. Imaging showing likely cirrhosis with superimposed possible acute alcoholic hepatitis vs tumor infiltration Trace amount of ascites in pelvis, not enough for even a diagnostic tap according to IR GI consult -possible alcoholic hepatitis-added prednisone ,moniter lft's daily has elevated pt/ inr -added po vitamink 10 mg X3. elevated ammonia -initiated on lactulose -she says she had 3 bm's in last 24 hrs , moniter bm's (goal 3 /day). Leukocytosis WBCs 22.9-19.5-22.3-26.5-28.2 no fever Likely reactionary-no new symptoms No sepsis, no clear source of infection Tachycardia secondary to anxiety CXR-negative ,Only trace ascites, not enough for diagnostic tap,blood cultures neg@48hrs ua -no bacteruria or pyuria, urine cultures -negative diarrhae -improved with holding luxative (lactulose and colace). Macrocytic anemia: denies any blood in stool iron levels normal , tibc ,iron sats -elevated b12 and folate seems fine. acute hypokalemia: added po and iv replacements mag normal moniter electrolytes closely. Alcohol use disorder: CIWA continue phenobarb protocol continue,Thiamine, folic acid, multivitamin, famotidine. Addiction medicine consult Monitor on telemetry acute hypokalemia : added po potassium Anxiety Continue sertraline Hydroxyzine p.r.n. Hypothyroidism TSH: 10 , free t4 normal. Continue levothyroxine. Full Code DVT Prophylaxis: Lovenox ongoing hospitalization need for treatment of?elevated LFTs concerning for acute alcoholic hepatitis, acute hypokalemia ,diarrhae: Close monitoring of renal function electrolytes, LFTs and need GI follow-up. Quality Stroke Does the patient have a stroke diagnosis?: No VTE Prior VTE?: No VTE Risk Level:: Medical - moderate - high VTE Device Contraindication: Treatment Not Indicated VTE Drug Contraindication: N/A - Med Ordered
--- NOTE | 2024-07-11 13:22 | MHC.RECOVRN ---
Met with pt to follow up and provide support. Pt just starting to eat lunch. Pt would like to come as a walk in to the [facility] upon discharge. Plan to walk pt to office when discharged. Denies questions or concerns. CM aware.
--- NOTE | 2024-07-11 14:09 | P.PNGI_ITS ---
Subjective Subjective Date of Service: 07/11/24 Interval History: stable abdominal pain improving appetite is fair no fever no melena fluid retention from steroid use Critical Care Time (minutes): 0 Physical Exam 2 Vital Signs: Vital Signs: Last Vital Signs Temp 97.8 F 07/11/24 11:54 Pulse 88 07/11/24 11:54 Resp 18 07/11/24 11:54 BP 124/70 07/11/24 11:54 Pulse Ox 94 07/11/24 11:54 O2 Del Method Room Air 07/11/24 11:54 BMI result Body Mass Index 25.2 EXAM: GENERAL: The patient is jaundiced VITAL SIGNS:see workflow HEENT: icteric sclerae, PERRLA, EOMI. Oropharynx clear. Moist mucous membranes. Conjunctivae appear well perfused. No thyroid mass. CHEST: Chest wall is nontender. HEART: Regular rate and rhythm without murmurs. LUNGS: Clear to auscultation bilaterally. ABDOMEN: Soft, positive bowel sounds, nontender, no organomegaly.no flank tenderness SKIN: No rash, no excessive bruising, petechiae, or purpura. NEUROLOGIC: Cranial nerves II-XII intact without motor/sensory deficit. Psych: normal affect Objective Data Labs 07/11/24 10:36 07/11/24 10:36 Labs: Laboratory Results - last 24 hr 07/11/24 10:36 WBC 28.2 H RBC 2.79 L Hgb 9.8 L Hct 29.0 L MCV 103.9 H MCH 35.1 H MCHC 33.8 RDW 17.4 H Plt Count 245 MPV 10.0 Absolute Nucleated RBC 0.000 Nucleated RBC % (auto) 0.0 Sodium 136 Potassium 3.5 Chloride 103 Carbon Dioxide 27 Anion Gap 10 L BUN 7 L Creatinine 0.65 Estim Creat Clear Calc 106.9 Estimated GFR > 60 Random Glucose 142 H Calcium 7.7 L Total Bilirubin 9.1 H AST 124 H ALT 36 H Alkaline Phosphatase 385 H Total Protein 5.6 L Albumin 2.8 L Microbiology Microbiology Results: Microbiology 07/07/24 07:12 Blood - Venous Blood Culture - Preliminary No growth after 48 hours. 07/07/24 07:12 Blood - Venous Blood Culture - Preliminary No growth after 48 hours. 07/09/24 Unknown Urine clean catch - Clean Catch Midstream Urine Culture - Final No growth. 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 Quality Stroke Does the patient have a stroke diagnosis?: No VTE Prior VTE?: No VTE Risk Level:: Medical - moderate - high VTE Device Contraindication: Treatment Not Indicated VTE Drug Contraindication: N/A - Med Ordered
[2024-07-11] MEDS: Enoxaparin Sodium 40 MG/0.4 ML SYRINGE SUBCUT (14:28)
--- NOTE | 2024-07-11 14:33 | MHC.CM.PN ---
Per rounds and EMR review, pt is not ready for DC, she requires ongoing care and treatment for elevated LFTs, concern for acute alcoholic hepatitis. DCP is home, self care, pt plans to follow up with [facility] outpt for addiction services.
--- NOTE | 2024-07-11 14:53 | MHC.CLN ---
CONSULT: HT 64 WT 147# IBW 120#+/-10% PT IS 123% IBW RANGE INDICATES OBESE FOR HT REVIEWED LABS NOTED NH3 72 ENN: 1500KCALS, 58G PROTEIN, 1740ML FLUID DIET RX: REGULAR-APPROPRIATE MONITOR PO INTAKE PT IS VERY LOW NUTRITION RISK AT THIS TIME
[2024-07-11] MEDS: Sertraline HCL 50 MG TABLET 150 MG PO (18:23)
[2024-07-11] MEDS: Melatonin 3 MG TABLET 6 MG PO (20:10)
[2024-07-12 03:23] VITALS: BP 125/61; PULSE 99; RESP 14; TEMP 36.4; O2SAT 94
[2024-07-12] MEDS: Levothyroxine Sodium 25 MCG TABLET PO (05:42)
[2024-07-12 07:20] VITALS: BP 108/65; PULSE 90; RESP 17; TEMP 36.4; O2SAT 93
--- NOTE | 2024-07-12 08:32 | P.PNGI_ITS ---
Subjective Subjective Date of Service: 07/12/24 Interval History: clinically doing much better no abdominal pain or confusion no fever Critical Care Time (minutes): 0 Physical Exam 2 Vital Signs: Vital Signs: Last Vital Signs Temp 97.6 F 07/12/24 07:20 Pulse 90 07/12/24 07:20 Resp 17 07/12/24 07:20 BP 108/65 07/12/24 07:20 Pulse Ox 93 07/12/24 07:20 O2 Del Method Room Air 07/12/24 07:20 BMI result Body Mass Index 25.2 EXAM: GENERAL: The patient is jaundiced VITAL SIGNS:see workflow HEENT: icteric sclerae, PERRLA, EOMI. Oropharynx clear. Moist mucous membranes. Conjunctivae appear well perfused. No thyroid mass. CHEST: Chest wall is nontender. HEART: Regular rate and rhythm without murmurs. LUNGS: Clear to auscultation bilaterally. ABDOMEN: Soft, positive bowel sounds, nontender, no organomegaly.no flank tenderness SKIN: No rash, no excessive bruising, petechiae, or purpura. NEUROLOGIC: Cranial nerves II-XII intact without motor/sensory deficit. Psych: normal affect Objective Data Labs 07/11/24 10:36 07/11/24 10:36 Labs: Laboratory Results - last 24 hr 07/11/24 10:36 WBC 28.2 H RBC 2.79 L Hgb 9.8 L Hct 29.0 L MCV 103.9 H MCH 35.1 H MCHC 33.8 RDW 17.4 H Plt Count 245 MPV 10.0 Absolute Nucleated RBC 0.000 Nucleated RBC % (auto) 0.0 Sodium 136 Potassium 3.5 Chloride 103 Carbon Dioxide 27 Anion Gap 10 L BUN 7 L Creatinine 0.65 Estim Creat Clear Calc 106.9 Estimated GFR > 60 Random Glucose 142 H Calcium 7.7 L Total Bilirubin 9.1 H AST 124 H ALT 36 H Alkaline Phosphatase 385 H Total Protein 5.6 L Albumin 2.8 L Microbiology Microbiology Results: Microbiology 07/07/24 07:12 Blood - Venous Blood Culture - Preliminary No growth after 48 hours. 07/07/24 07:12 Blood - Venous Blood Culture - Preliminary No growth after 48 hours. 07/09/24 Unknown Urine clean catch - Clean Catch Midstream Urine Culture - Final No growth. Procedures Date of Service Date of Service: 07/12/24 Progress Note: A&P Assessment and plan (1) Acute alcoholic hepatitis: Status: Acute Plan 1/ Acute alcoholic hepatitis, stable clinically improving PLAN: 1/ High protein diet 1.1g/kg/ day 2/ Await Labs from today, calculate D#4 Lille score to decide if can go home with steroids or not 3/ reminded on importance of alcohol abstinence Time Spent With Patient Time: Total time managing care of this patient today ____ minutes. Quality Stroke Does the patient have a stroke diagnosis?: No VTE Prior VTE?: No VTE Risk Level:: Medical - moderate - high VTE Device Contraindication: Treatment Not Indicated VTE Drug Contraindication: N/A - Med Ordered
[2024-07-12 08:38] LABS: Hematocrit 28.4 % (37.0-47.0); Hemoglobin 9.5 g/dl (12.0-16.0); Mean Corpuscular HGB Conc 33.5 g/dl (31.0-35.0); Mean Corpuscular Hemoglobin 33.9 pg (27.0-33.0); Mean Corpuscular Volume 101.4 fL (80.0-98.0); Mean Platelet Volume 9.8 fL (9.4-12.3); Platelet Count 245 X10*3/uL (160-400); Red Cell Distribution Width 18.2 % (11.0-16.0); White Blood Count 24.7 X10*3/uL (4.8-10.8)
[2024-07-12 08:42] LABS: INTERNATIONAL NORM RATIO 1.5 (0.9-1.1); Prothrombin Time 17.1 SEC (10.9-12.4)
[2024-07-12] MEDS: Folic Acid 1 MG TABLET PO (08:55)
[2024-07-12] MEDS: NORGESTIMATE ETHINYL ESTRADIOL 1 EACH PO (08:55)
[2024-07-12] MEDS: Lactulose 20 GM/30 ML SOLUTION PO (08:55)
[2024-07-12] MEDS: predniSONE 20 MG TABLET 40 MG PO (08:56)
[2024-07-12] MEDS: PHENobarbitaL 15 MG TABLET PO (08:56)
[2024-07-12] MEDS: Magnesium Oxide 400 MG TABLET PO (08:56)
[2024-07-12] MEDS: Simethicone 80 MG TAB.CHEW PO (08:56)
[2024-07-12] MEDS: Famotidine 20 MG TABLET PO (08:57)
[2024-07-12] MEDS: 0.9 % Sodium Chloride Flush 3 ML SYRINGE IVFLUSH (08:57)
[2024-07-12 09:02] LABS: Alanine Aminotransferase 33 U/L (0-31); Albumin Level 2.7 g/dL (3.5-5.0); Alkaline Phosphatase 370 U/L (39-117); Anion Gap 10 (12-20); Aspartate Amino Transferase 130 U/L (5-31); Bilirubin Total 9.5 mg/dL (0.0-1.0); Blood Urea Nitrogen 6 mg/dL (9-16); Calcium 7.6 mg/dL (8.4-10.2); Carbon Dioxide 26 mmol/L (22-29); Chloride 102 mmol/L (96-108); Creatinine Clr Calc Pharmacy 117.8; Estimated Glomerular Filt Rate > 60; Glucose Random 98 mg/dL (60-115); Potassium 3.2 mmol/L (3.3-5.1); Sodium 135 mmol/L (135-145); Total Protein 5.6 g/dL (6.5-8.0)
[2024-07-12 09:17] LABS: Band Neutrophils Percent 29 % (3-5); Eosinophils Absolute Manual 0.2 X10*3/uL (0.0-0.4); Eosinophils Percent Manual 1 % (0-4); Large Platelet PRESENT; Lymphocytes Absolute Manual 0.7 X10*3/uL (1.2-4.9); Lymphocytes Percent Manual 3 % (20-40); Macrocytosis 1+ (5-14) /OIF; Monocytes Percent Manual 4 % (2-11); Neutrophils Absolute Manual 22.7 X10*3/uL (2.0-8.3); Neutrophils Percent Manual 63 % (45-73); Platelet Estimate NORMAL (NORMAL); Platelet Morphology Comment NOTED; Polychromasia 1+ (0-2) /OIF; RBC Morphology NOTED; Target Cells 1+ (5-14) /OIF; Toxic Granulation PRESENT; Toxic Vacuolation PRESENT
--- NOTE | 2024-07-12 12:09 | P.DS_ITS ---
DS: Providers Provider Date of Service: 07/12/24 Date of admission: 07/07/24 13:40 Date of discharge: 07/12/24 Primary care physician: Karina Chapman MD Consults: 07/07/24 11:23 Addiction Medicine Stat Consulting Provider: Addiction Covering Reason for consultation: etoh dependency 07/07/24 12:29 Consult to Gastroenterology Stat Consulting Provider: Yelena Kennedy Reason for consultation: elevated LFTs, abn CT Has provider been notified: Yes 07/07/24 15:57 Consult to Gastroenterology Routine Consulting Provider: [facility] Gastro[facility]ology Services Reason for consultation: liver cirrossis ,possible acute alcoholic hepatitis Has provider been notified: No 07/10/24 08:08 Consult to Infectious Diseases Routine Consulting Provider: [facility] Infect[facility] Reason for consultation: leucocytosis Has provider been notified: No Attending physician on discharge: Titus Hays Discharging clinician: Titus Hays DS: Diagnosis Discharge Diagnosis (1) Acute alcoholic hepatitis: Status: Acute DS: Summary Hospital Course Hospital Course: HPI: 39-year-old female with a PMH significant for alcohol use disorder, hypothyroidism, and anxiety?who presents to the ED due to abnormal outpatient labs. Pt reports has been feeling unwell for the past 2 months. Began noticing abdominal distension in April and since then has had bloating, generalized abdominal discomfort, and occasional N/V. Dolores has gained 20lbs during this time. Presented to her PCP last week who ordered an abd ultrasound performed at [facility] in [place], [place] and bloodwork. State she never heard back about results. However, her partner noticed labs looked abnormal so called the PCP office and was told she should present to the ED for further evaluation. Pt reports has been drinking 3 glasses of white wine daily x9-10 years. Has significant family history of paternal AUD, saying her father, grandfather, and an aunt from alcoholism . Denies hx of withdrawal. No auditory or visual hallucinations. No headache. Denies fever, chills. No cough. Denies shortness or breath or difficulty breathing. No chest pain/pressure, palpitations. Denies polyuria or dysuria. Denies significant diarrhea. In the ED pt was afebrile but tachycardic up to 113 and tachypneic up to 33. Labs were significant for leukocytosis of 22.9, macrocytic anemia 10.2/29.4 with MCV 99.7, potassium 3.2, bilirubin 9.5, AST 205, ALT 47, alk-phos 637, ammonia 57, and albumin 2.8. Hepatitis panel negative. CT?of abdomen and pelvis showed hepatosplenomegaly suggesting cirrhosis, though superimposed hepatocellular dysfunction/acute hepatitis versus tumor infiltration to the liver can not be excluded. Also found small amount of ascites, and question of acute pancreatitis. Abdominal ultrasound found diffuse enlargement and fatty infiltration of liver possible early cirrhotic changes but no discrete focal lesion. Also found mild enlargement of head of pancreas with mild decrease in attenuation, question of acute pancreatitis. Pt was treated with IVF and started on phenobarb protocol. Pt will be admitted to the hospital for treatment further evaluation of abdominal distention and elevated LFTs concerning for acute alcoholic hepatitis. Hospital course: Patient admitted to the hospital because of elevated LFTs, abdominal pain: Found to have possible alcoholic hepatitis, CT abdomen also reported mild question of pancreatitis(CT abdomen shows-Hepatosplenomegaly suggesting cirrhosis. Superimposed hepatocellular dysfunction/acute hepatitis versus tumor infiltration to the liver cannot be excluded.): Patient seen GI - received supportive care with bowel rest, pain medication, also started on treatment for alcoholic hepatitis with prednisone, In addition ammonia levels are elevated so added lactulose.: LFTs moderate monitored closely-seems improving, also received vitamin K for 3 days -INR is also improving. Patient abdominal pain improved significantly, no new symptoms. Patient was seen by GI recommended prednisone taper. Patient already received prednisone 40 mg for 3 days in hospital. Patient abdominal ultrasound shows mild ascites-not enough to tap. Leukocytosis:improving ,no fever-Likely reactionary-no new symptoms,No sepsis, no clear source of infection,Tachycardia improving CXR-negative ,Only trace ascites, not enough for diagnostic tap,blood cultures neg@48hrs ua -no bacteruria or pyuria, urine cultures -negative In addition patient was treated for alcohol withdrawal with phenobarbital-seem improved. diarrhae - on lactulose ,goal 3 bm/day (considering elevated ammonia levels ) Above discussed with the patient and GI: Patient will need follow-up with GI outpatient for further management and workup, monitor CBC, CMP, INR outpatient in 1 week. Above management discussed with the patient in detail length she understand in agreement with the plan, time spent 40 minute. Staff was present during conversation. plan: Prednisone taper 40 for 4 days, then 30 mg for 7 days, then 20 mg for 7 days then 10 mg for 7 days and stop. Follow-up with GI and PCP outpatient. Above management discussed with the patient detail length she understand and in agreement with the above plan, time spent 40 minute, staff was present during conversation Time Attestation Total time managing care of this patient today: 40 mintues. Discharge Coordination Time (in mins): 40 min Quality: Safe Use of Opioids Does Pt have an Active Cancer Diagnosis on the Problem List?: No Quality: Stroke Does the patient have a stroke diagnosis?: No Physical Exam Vital Signs: Vital Signs: Last Vital Signs Temp 97.6 F 07/12/24 07:20 Pulse 90 07/12/24 07:20 Resp 17 07/12/24 07:20 BP 108/65 07/12/24 07:20 Pulse Ox 93 07/12/24 07:20 O2 Del Method Room Air 07/12/24 07:20 BMI result Body Mass Index 25.2 Appearance: Alert.? Oriented X3.? Eyes: icteric cvs: rrr, [id number] . res: clear to auscultation ,no rhonchii or wheezing abd: no rebound or guarding ,nd,nt, bs present. ext pulses present , no cyanosis . neuro: axo3 , nonfocal. DS: Data Data Completed and Pending Labs on day of discharge: Laboratory Results - last 24 hr 07/12/24 08:22 WBC 24.7 H RBC 2.80 L Hgb 9.5 L Hct 28.4 L MCV 101.4 H MCH 33.9 H MCHC 33.5 RDW 18.2 H Plt Count 245 MPV 9.8 Immature Gran % (Auto) Cancelled Neut % (Auto) Cancelled Lymph % (Auto) Cancelled [place] % (Auto) Cancelled Eos % (Auto) Cancelled Baso % (Auto) Cancelled Lymph # (Auto) Cancelled [place] # (Auto) Cancelled Eos # (Auto) Cancelled Baso # (Auto) Cancelled Abs Immat Gran (auto) Cancelled Absolute Neuts (auto) Cancelled Absolute Nucleated RBC 0.000 Nucleated RBC % (auto) 0.0 Neutrophils % (Manual) 63 Band Neutrophils % 29 H Lymphocytes % (Manual) 3 L Monocytes % (Manual) 4 Eosinophils % (Manual) 1 Abs Neuts (Manual) 22.7 H Lymphocytes # (Manual) 0.7 L Monocytes # (Manual) 1.0 Eosinophils # (Manual) 0.2 Toxic Granulation PRESENT Toxic Vacuolation PRESENT Platelet Estimate NORMAL Large Platelets PRESENT Plt Morphology Comment NOTED RBC Morphology NOTED Polychromasia 1+ (0-2) Macrocytosis 1+ (5-14) Target Cells 1+ (5-14) PT 17.1 H D INR 1.5 H Sodium 135 Potassium 3.2 L Chloride 102 Carbon Dioxide 26 Anion Gap 10 L BUN 6 L Creatinine 0.59 Estim Creat Clear Calc 117.8 Estimated GFR > 60 Random Glucose 98 Calcium 7.6 L Total Bilirubin 9.5 H AST 130 H ALT 33 H Alkaline Phosphatase 370 H Total Protein 5.6 L Albumin 2.7 L Preliminary micro results at discharge 07/07/24 07:12 Blood Culture - Preliminary Blood - Venous No growth after 48 hours. 07/07/24 07:12 Blood Culture - Preliminary Blood - Venous No growth after 48 hours. Imaging Chest x-ray: Radiologist's impression: ITS Impressions Abdomen/Pelvis CT 07/07/24 06:39 IMPRESSION: Hepatosplenomegaly suggesting cirrhosis. Superimposed hepatocellular dysfunction/acute hepatitis versus tumor infiltration to the liver cannot be excluded. Small amount of ascites. Questionable acute pancreatitis. No intestinal obstruction pattern. No pneumoperitoneum. Fleischner guidelines were followed. Electronically signed by: Castillo Abraham MD 07/07/2024 10:28 AM [facility] RP Abdomen Ultrasound 07/07/24 08:15 IMPRESSION: 1. Diffuse enlargement and fatty infiltration of the liver with possible early cirrhotic changes. No discrete focal lesion. 2. Mild enlargement of the head of the pancreas with mild decrease in attenuation, findings which could represent acute pancreatitis in the appropriate clinical setting. No focal pancreatic abnormality. 3. Mild gallbladder wall thickening with a trace amount of pericholecystic fluid, nonspecific. Limited assessment for sonographic Arriaga's due to diffuse pain. No definite calculi or sludge seen. 4. Consider cross-sectional CT imaging of the abdomen/pelvis to further elucidate findings. Electronically signed by: Garcia Reyna MD 07/07/2024 09:44 AM EST RP Chest X-Ray 07/07/24 13:20 IMPRESSION: No acute cardiopulmonary disease. Electronically signed by: Mathieu Paula MD 07/07/2024 02:34 PM EST RP Abdomen Ultrasound 07/11/24 13:38 IMPRESSION: There is hepatomegaly, with a longitudinal span of 22.4 cm. There is mild free fluid within the left upper quadrant. Electronically signed by: Austin Costa MD 07/11/2024 05:26 PM EST RP Discharge Plan Discharge Anticipated Discharge Date/Time: 07/12/24 11:52 Patient Disposition: Home, Self-Care Discharge Diagnosis: alcoholic hepatitis Referrals: Anju Fajardo MD [Physician] - 1 Week Karina Chapman MD [Primary Care Provider] - 1 Week Discharge Medications: New prednisone 10 mg tablet See Taper PO DAILY Qty: 58 0RF Taper: Prednisone 40 mg daily for 4 Days and 0 Hour 30 mg daily for 7 Days and 0 Hour 20 mg daily for 7 Days and 0 Hour 10 mg daily for 7 Days and 0 Hour famotidine 20 mg Tablet 20 mg PO DAILY Qty: 60 0RF lactulose 20 gram/30 mL Solution 20 g PO DAILY Qty: 600 0RF thiamine HCl (vitamin B1) 100 mg tablet 100 mg PO DAILY Qty: 30 0RF folic acid 1 mg tablet 1 mg PO DAILY Qty: 30 0RF Continued levothyroxine 25 mcg tablet 25 mcg PO DAILY@0630 folic acid 1 mg tablet 1 mg PO DAILY hydroxyzine HCl 25 mg tablet 25 mg PO QID PRN (Reason: itch) sertraline 50 mg tablet 150 mg PO DAILY norgestimate-ethinyl estradiol [Kud-Rw-Fepfig] 0.18/0.215/0.25 mg-25 mcg tablet 1 tab PO DAILY magnesium oxide 400 mg magnesium Tablet 400 mg PO DAILY Discharge Orders: Discharge Order (Routine); Ordered 07/12/24 Ordered By: Titus Hays Diet: Advance to usual diet Activity on Discharge: As tolerated Stand Alone Forms: Patient Portal Discharge page Print Language: Setswana Other Ambulatory Orders: Complete Blood Count no Diff (Routine) Timeframe: 1 Week Facility: [facility] - Location: Laboratory Ordered By: Titus Hays Comprehensive Met. Panel (Routine) Timeframe: 1 Week Facility: [facility] - Location: Laboratory Ordered By: Titus Hays Prothrombin Time INR (Routine) Timeframe: 1 Week Facility: [facility] - Location: Laboratory Ordered By: Titus Hays Care Plan Goals: Patient admitted to the hospital because of elevated LFTs, abdominal pain: Found to have possible alcoholic hepatitis, CT abdomen also reported mild question of pancreatitis(CT abdomen shows-Hepatosplenomegaly suggesting cirrhosis. Superimposed hepatocellular dysfunction/acute hepatitis versus tumor infiltration to the liver cannot be excluded.): Patient seen GI - received supportive care with bowel rest, pain medication, also started on treatment for alcoholic hepatitis with prednisone, In addition ammonia levels are elevated so added lactulose.: LFTs moderate monitored closely-seems improving, also received vitamin K for 3 days -INR is also improving. Patient was seen by GI recommended prednisone taper. Patient already received prednisone 40 mg for 3 days in hospital. Patient abdominal ultrasound shows mild ascites-not enough to tap. Above discussed with the patient and GI: Patient will need follow-up with GI outpatient for further management and workup, monitor CBC, CMP, INR outpatient in 1 week. Above management discussed with the patient in detail length she understand in agreement with the plan, time spent 40 minute. Staff was present during conversation. Health Concerns: As above. Plan of Treatment: Prednisone taper 40 for 4 days, then 30 mg for 7 days, then 20 mg for 7 days then 10 mg for 7 days and stop. continue lactulose 20 mg daily-goal for 3 bm/day -further use lactulose decided with GI/pcp outpatient. Follow-up with GI and PCP outpatient. Assessment: As above.
--- NOTE | 2024-07-12 13:12 | P.CNID_ITS ---
History of Present Illness Data of Consult Service Date: 07/11/24 Requesting physician: Titus Hays Primary Care Provider: Karina Chapman MD [facility] Reason for consult: leukocytosis She presents with weakness and generalized body aches and abdominal swelling. She has no tick bites She drinks daily alcohol. She has no fever or chills. WBC count is 22.00 Review of Systems 2 Review of Systems: Yes all other systems are reviewed and are negative [facility] Past Medical History Medical History Anxiety disorder Hypothyroidism Alcohol use disorder Family History Family history: reviewed and not pertinent Social History Social History Household Members: Family Housing: House Do you presently have visiting nurse or other home services: No Alcohol intake: current Alcohol intake frequency: a few times a week Patient Tobacco Use Status: Former Tobacco user Advance Directives Date on File: 07/08/24 service: No Meds Allergies Allergy/AdvReac Type Severity Reaction Status Date / Time No Known Allergies Allergy Verified 07/07/24 00:04 Active Medications: Current Medications Benzonatate (Benzonatate 100 Mg Capsule) 100 mg PO TID PRN PRN Reason: Cough Last Admin: 07/10/24 20:14 Dose: 100 mg Calcium Carbonate (Calcium Carbonate 750 Mg Tab.Chew) 750 mg PO Q4H PRN PRN Reason: Heartburn Docusate Sodium (Docusate Sodium 100 Mg Capsule) 100 mg PO DAILY [facility] Last Admin: 07/09/24 08:03 Dose: 100 mg Enoxaparin Sodium (Enoxaparin Sodium 40 Mg/0.4 Ml Syringe) 40 mg SUBCUT Q24H [facility] Last Admin: 07/11/24 14:28 Dose: 40 mg Famotidine (Famotidine 20 Mg Tablet) 20 mg PO BID [facility] Last Admin: 07/12/24 08:57 Dose: 20 mg Folic Acid (Folic Acid 1 Mg Tablet) 1 mg PO DAILY [facility] Last Admin: 07/12/24 08:55 Dose: 1 mg Hydroxyzine HCl (Hydroxyzine Hcl 25 Mg Tablet) 25 mg PO Q6H PRN PRN Reason: Anxiety Last Admin: 07/10/24 09:37 Dose: 25 mg Lactulose (Lactulose 20 Gm/30 Ml Solution) 20 gm PO DAILY [facility] Last Admin: 07/12/24 08:55 Dose: 20 gm Levothyroxine Sodium (Levothyroxine Sodium 25 Mcg Tablet) 25 mcg PO DAILY@0600 [facility] Last Admin: 07/12/24 05:42 Dose: 25 mcg Magnesium Hydroxide (Milk Of Magnesia 30 Ml Oral.Susp) 30 ml PO DAILY PRN PRN Reason: Constipation Magnesium Oxide (Magnesium Oxide 400 Mg Tablet) 400 mg PO BIDWM [facility] Last Admin: 07/12/24 08:56 Dose: 400 mg Melatonin (Melatonin 3 Mg Tablet) 6 mg PO BEDTIME PRN PRN Reason: Insomnia Last Admin: 07/11/24 20:10 Dose: 6 mg Pt Own (Norgestimate -Ethinyl Estradiol [ Ygm-Pu-Gpmtab] 0.18/0.215/0.25 M 1 tab PO DAILY [facility] Last Admin: 07/12/24 08:55 Dose: 1 tab Pharmacy Consult (Consult Rx Etoh Phenob Im/Po) 1 each MISCELLANE ONCE PRN; Protocol PRN Reason: Consult order Phenobarbital (Phenobarbital 15 Mg Tablet) 15 mg PO DAILY [facility]; Protocol Stop: 07/13/24 09:01 Last Admin: 07/12/24 08:56 Dose: 15 mg Prednisone (Prednisone 20 Mg Tablet) 40 mg PO DAILY [facility] Last Admin: 07/12/24 08:56 Dose: 40 mg Sertraline HCl (Sertraline Hcl 50 Mg Tablet) 150 mg PO DAILY@1900 [facility] Last Admin: 07/11/24 18:23 Dose: 150 mg Simethicone (Simethicone 80 Mg Tab.Chew) 80 mg PO BID [facility] Last Admin: 07/12/24 08:56 Dose: 80 mg Sodium Chloride (0.9 % Sodium Chloride Flush 3 Ml Syringe) 3 ml IVFLUSH QSHIFT [facility] Last Admin: 07/12/24 08:57 Dose: 3 ml Home Medications ?Medication ?Instructions ?Recorded ?Confirmed ?Last Taken ?Type folic acid 1 mg tablet 1 mg PO DAILY 07/07/24 07/07/24 Unknown History hydroxyzine HCl 25 mg tablet 25 mg PO QID PRN itch 07/07/24 07/07/24 Unknown History levothyroxine 25 mcg tablet 25 mcg PO DAILY@0630 07/07/24 07/07/24 Unknown History magnesium oxide 400 mg PO DAILY 07/07/24 07/07/24 Unknown History norgestimate 0.18 mg/0.215 mg/0.25 1 tab PO DAILY 07/07/24 07/07/24 Unknown History mg-ethinyl estradiol 25 mcg tablet (Pts-Qp-Rlbyqp) sertraline 50 mg tablet 150 mg PO DAILY 07/07/24 07/07/24 Unknown History Physical Exam 2 Vital Signs: Vital Signs: Last Vital Signs Temp 97.6 F 07/12/24 07:20 Pulse 90 07/12/24 07:20 Resp 17 07/12/24 07:20 BP 108/65 07/12/24 07:20 Pulse Ox 93 07/12/24 07:20 O2 Del Method Room Air 07/12/24 07:20 BMI result Body Mass Index 25.2 Const: General: cooperative HEENT: Head: Yes normal to inspection Face and sinus: Yes normal facial exam Mouth: Normal oral and palatal mucosa present Teeth and gingiva: d entition normal Eyes: General: appearance normal, both eyes and all related structures P upils: Equal, round and reactive pupils present Resp: Effort & Inspection: normal respiratory effort Cardio: Rate: regular rate Rhythm: regular rhythm GI: Other: mild abdominal discomfort Palpation (GI): Soft to palpation and nontender : General: Yes no CVA tenderness Back/Spine/Pelvis: Back: no CVA tenderness Skin: General skin exam: no rashes or lesions noted Neuro: General: moves all extremities Cranial nerves: Yes Equal, round and reactive pupils present Extrem: General: Yes normal to inspection Psych: Appearance: grossly normal Results Labs 07/12/24 08:22 07/12/24 08:22 Labs: Short CBC 07/12/24 Range/Units 08:22 WBC 24.7 H (4.8-10.8) X10*3/uL Hgb 9.5 L (12.0-16.0) g/dl Hct 28.4 L (37.0-47.0) % Plt Count 245 (160-400) X10*3/uL BMP 07/12/24 08:22 Sodium 135 Potassium 3.2 L Chloride 102 Carbon Dioxide 26 BUN 6 L Creatinine 0.59 Calcium 7.6 L Liver Function 07/12/24 Range/Units 08:22 Total Bilirubin 9.5 H (0.0-1.0) mg/dL AST 130 H (5-31) U/L ALT 33 H (0-31) U/L Alkaline Phosphatase 370 H (39-117) U/L Albumin 2.7 L (3.5-5.0) g/dL Microbiology Microbiology Results: Microbiology 07/07/24 07:12 Blood - Venous Blood Culture - Preliminary No growth after 48 hours. 07/07/24 07:12 Blood - Venous Blood Culture - Preliminary No growth after 48 hours. 07/09/24 Unknown Urine clean catch - Clean Catch Midstream Urine Culture - Final No growth. Assessment and Plan (1) Leucocytosis: Status: Acute (2) Abdominal swelling: Status: Acute Plan Leukemoid reaction probably due to alcoholic hepatitis. No infection seen Check Hepatitis C if not done. No antibiotics at this time. Pathology review of WBC if not done.
[2024-07-12] MEDS: Potassium Chloride ER 20 MEQ TAB.ER.PRT 40 MEQ PO (13:56)
--- NOTE | 2024-07-12 14:08 | MHC.CM.PN ---
PT MEDICALLY CLEARED FOR DC HOME SELF CARE, PER RECOVERY NURSE SHE WILL WALK PT OVER TO [facility] FOR APPT.
--- NOTE | 2024-07-12 14:56 | MHC.RECOVRN ---
Pt dc and walked over to the [facility] to present as a walk in.
[2024-07-13 01:49] LABS: Zinc 33 mcg/dL (60-130)
== END 2024-07-12 14:59 | disposition home or self-care (01) | DRG 433 ==
LOC: HO.ED 07-07 12:27 → HO.EDOVER 07-07 13:41 → HO.IMC 07-07 19:03 → HO.EDOVER 07-07 20:41 → HO.IMC 07-08 08:19
PROVIDERS: Internal Medicine Gastroenterology; Physician Assistant Medical; Student in an Organized Health Care Education/Training Program; Admitting Provider Student in an Organized Health Care Education/Training Program; Emergency Provider Emergency Medicine Emergency Medical Services; PCP Student in an Organized Health Care Education/Training Program; Visit Provider Internal Medicine
DX: K70.11 Alcoholic hepatitis with ascites (principal); E46 Unspecified protein-calorie malnutrition; E03.9 Hypothyroidism, unspecified; K74.60 Unspecified cirrhosis of liver; Z68.25 Body mass index [BMI] 25.0-25.9, adult; K70.0 Alcoholic fatty liver; D53.9 Nutritional anemia, unspecified; F10.90 Alcohol use, unspecified, uncomplicated; F41.9 Anxiety disorder, unspecified; E87.6 Hypokalemia; Z87.891 Personal history of nicotine dependence; Z79.890 Hormone replacement therapy; Z79.899 Other long term (current) drug therapy
CPT/HCPCS: 36415; 71046; 74177; 76705; 80053; 81001; 81003; 81025; 82140; 82248; 82607; 82728; 82746; 83540; 83605; 83690; 83735; 84132; 84439; 84443; 84630; 84702; 85007; 85025; 85027; 85610; 86704; 86706; 86709; 86803; 87040; 87086; 87340; 87633; 99285; J0696; J1650; J2405; J2560; J3480; P9047; Q9967

== ENCOUNTER → 2024-07-07 06:39 | Outpatient (BNV) | payer OTHER, SELFPAY | PROVIDERS: Emergency Provider Emergency Medicine Emergency Medical Services; PCP Student in an Organized Health Care Education/Training Program; Visit Provider Radiology Diagnostic Radiology | DX: K74.60 Unspecified cirrhosis of liver (principal); R74.01 Elevation of levels of liver transaminase levels | CPT/HCPCS: 74177; 76705 ==

== ENCOUNTER → 2024-07-07 13:40 | Outpatient (BNV) | payer OTHER, SELFPAY | PROVIDERS: Admitting Provider Student in an Organized Health Care Education/Training Program; Emergency Provider Emergency Medicine Emergency Medical Services; PCP Student in an Organized Health Care Education/Training Program; Visit Provider Internal Medicine Gastroenterology | DX: K70.10 Alcoholic hepatitis without ascites (principal); R74.01 Elevation of levels of liver transaminase levels | CPT/HCPCS: 99222; 99232; 99233 ==

== ENCOUNTER → 2024-07-07 13:40 | Outpatient (BNV) | payer OTHER, SELFPAY | PROVIDERS: Admitting Provider Student in an Organized Health Care Education/Training Program; Emergency Provider Emergency Medicine Emergency Medical Services; PCP Student in an Organized Health Care Education/Training Program; Visit Provider Student in an Organized Health Care Education/Training Program | DX: R19.00 Intra-abdominal and pelvic swelling, mass and lump, unspecified site (principal); R79.89 Other specified abnormal findings of blood chemistry; K70.10 Alcoholic hepatitis without ascites | CPT/HCPCS: 99223; 99232; 99239 ==

== ENCOUNTER → 2024-07-07 13:40 | Outpatient (BNV) | payer OTHER, SELFPAY | PROVIDERS: Admitting Provider Student in an Organized Health Care Education/Training Program; Emergency Provider Emergency Medicine Emergency Medical Services; PCP Student in an Organized Health Care Education/Training Program; Visit Provider Internal Medicine | DX: D72.829 Elevated white blood cell count, unspecified (principal); R19.00 Intra-abdominal and pelvic swelling, mass and lump, unspecified site | CPT/HCPCS: 99222 ==

== ENCOUNTER 2024-07-12 14:43 | Outpatient (AMB) | payer OTHER, SELFPAY ==
--- NOTE | 2024-07-12 15:15 | MHC.AM.SUB ---
Intake Visit Reasons: MAT Allergies No Known Allergies Allergy (Verified 07/07/24 00:04) HPI HPI MAT: Details: Patient presents for intake and evaluation of alcohol use disorder Discharged earlier today from medical floor following admission for alcohol withdrawal and acute hepatitis Mild abdominal ascites and elevated ammonia levels also noted at admission History obtained by RN and reviewed with patient Medical admission notes and labs reviewed Liver enzymes continue to be elevated Partner present during visit, at patient's request Patient appearing jaundiced and anxious. Patient reports she had previously been medically admitted with similar presentation at [facility]. Identifies stress and anxiety and triggers to continuing drinking Works from home and access to alcohol is not a challenge Patient and partner both share increase in risky behaviors while drinking --driving, working, etc. Verbalizing interest in [facility], and had reviewed information while admitted. Contemplative related to additional recovery supports In terms of medical follow up she reports that she has to schedule follow up with GI. Review of Systems Const Reports as per HPI, Reports difficulty sleeping, Reports fatigue and Reports lethargy Psych Reports anxiety, Reports difficulty concentrating and Reports anhedonia Endo Reports fatigue Physical Exam Const General: anxious and ill appearing Nutritional Appearance: other Orientation/consciousness: patient oriented x3 Neuro General: patient oriented x3 Psych Appearance: other (ill appearing ) Speech and movement: Slurred speech present (slightly ) Affect: Anxious affect present Attitude: Guarded attititude/behavior present Thought process: Circumstantial thought process present Insight: Limited insight present (Psych) Assessment & Plan Assessment & Plan (1) Alcohol use disorder, severe, dependence: Code(s): F10.20 - Alcohol dependence, uncomplicated Category: Medical Plan: risk reduction discussion acamprosate ordered and education reinforced information for support provided to partner patient at this time not interested in additional supports beyond medication follow up 2 weeks Medications: New acamprosate start with one pill three times per day, then increase to 2 pills three times per day 666 mg (2 x 333 mg) PO TID 180 tabs 0RF PFSH Medical History Anxiety disorder Hypothyroidism Alcohol use disorder Social History Household Members: Family Housing: House Do you presently have visiting nurse or other home services: No Alcohol intake: current Alcohol intake frequency: a few times a week Patient Tobacco Use Status: Former Tobacco user Advance Directives Date on File: 07/08/24 service: No
== END 2024-07-13 10:53 | disposition home or self-care (01) ==
LOC: HO.HCC 14:43
PROVIDERS: PCP Student in an Organized Health Care Education/Training Program; Visit Provider Nurse Practitioner Psychiatric/Mental Health
DX: F10.20 Alcohol dependence, uncomplicated (principal)
CPT/HCPCS: 99204

== ENCOUNTER 2024-07-20 13:01 | Outpatient (AMB) | payer OTHER, SELFPAY ==
--- NOTE | 2024-07-20 11:34 | A.OFFVISCC_ITS ---
Intake Visit Reasons: MAT telehealth visit Allergies No Known Allergies Allergy (Verified 07/07/24 00:04) [facility] MAT telehealth visit: Details: cleaning and cooking more has been keeping busy has not called GI --anxious Was not able to cook pickled meat campral discussed gabapentin --took at much higher doses and felt drowsy will trial at 100mg Managing craving with drinking soda mood--depressed Reports her partner's been helpful Experiencing decreased appetite sleeping 10 hours per night depression--fatigue Review of Systems Const Reports as per [facility] Telehealth Telehealth Telehealth Platform: Telephone Location of provider rendering services: practice address Location of patient: address on file Patient Identification confirmed using: Name, : Yes Telehealth method: voice only Patient verbally consented to treatment: Yes Patient verbally consented to billing insurance company: Yes Minutes spent on Phone/Video with Pt.: 20 Assessment & Plan Assessment & Plan (1) Alcohol use disorder, severe, dependence: Code(s): F10.20 - Alcohol dependence, uncomplicated Category: Medical Plan: * gabapentin 100mg BID * risk reduction strategies * goal is to make appt with GI before next appt * follow up as scheduled Medications: New gabapentin 100 mg PO BID 30 caps 0RF Discontinued acamprosate start with one pill three times per day, then increase to 2 pills three times per day Discontinued Reason: None 666 mg (2 x 333 mg) PO TID 180 tabs 0RF PFSH Medical History Anxiety disorder Hypothyroidism Alcohol use disorder Social History Household Members: Family Housing: House Do you presently have visiting nurse or other home services: No Alcohol intake: current Alcohol intake frequency: a few times a week Patient Tobacco Use Status: Former Tobacco user Advance Directives Date on File: 07/08/24 service: No
== END 2024-07-20 13:46 | disposition home or self-care (01) ==
PROVIDERS: PCP Student in an Organized Health Care Education/Training Program; Visit Provider Nurse Practitioner Psychiatric/Mental Health
DX: F10.20 Alcohol dependence, uncomplicated (principal)
CPT/HCPCS: 99214